=== PATIENT | female | born 1930 | race Caucasian/White ===

== ENCOUNTER 2018-01-08 14:24 | Inpatient (IN) | payer MEDICAID ==
--- NOTE | 2018-01-08 14:37 | ED Physician Chart ---
ED Chief Complaint/HPI - Patient Information Date Seen:: 01/08/18 Time Seen:: 14:30 Chief Complaint:: SWELLING IN ANTERIOR NECK FIRST NOTED 10 AM YESTERDAY. History of Present Illness:: THIS 87-YEAR-OLD FEMALE WAS NOTED TO HAVE SWELLING IN THE ANTERIOR NECK YESTERDAY AT 10 AM. AT THAT TIME THE PATIENT WAS STARTED ON CLINDAMYCIN 300 MG EVERY 6 HOURS. WHEN THE PATIENT SWELLING SEEMED TO BE PROGRESSING AUGMENTIN WAS ADDED TO THE ANTIBIOTIC REGIMEN. THE PATIENT WAS TRANSFERRED TO THE EMERGENCY DEPARTMENT FOR EVALUATION OF AIRWAY OBSTRUCTION AND INTERVENTION NEEDED. UPON ARRIVAL THE PATIENT HAD A TEMPERATURE OF 100.5. Allergies:: Allergies Allergy/AdvReac Type Severity Reaction Status Date / Time Penicillins [PCN] AdvReac Verified 06/03/16 19:15 ED Review of Systems - Review of Systems General/Constitutional: Fever, Other (DUE TO THE PATIENT'S DEMENTIA AND PRIOR CVA NO RELIABLE INFORMATION COULD BE OBTAINED FOR REVIEW OF SYSTEM.) Skin: Other ED Past Medical History - Past Medical History Past Medical History: Other (PAPERWORK WHICH ACCOMPANIED THE PATIENT SHOWED A PAST MEDICAL HISTORY OF HYPERTENSION, LIPIDEMIA, CEREBRAL VASCULAR ACCIDENT NOT OTHERWISE SPECIFIED, DVT, SOFTWARE QUALITY TESTER USE OF ANTICOAGULANTS, PEPTIC ULCER DISEASE , AND DEMENTIA.) Family History: HTN, DVT/PE, Other Social History: Non Smoker, No Alcohol, No Drug Use, Care Facility ([facility]) Family Medical History - Family Member Mother History Unknown: Yes ED Physical Exam - Physical Examination General/Constitutional: Awake, Well-developed, well-nourished, Non-toxic appearing Other Gen/Cons comments:: THE PATIENT IS AWAKE AND WITHIN NO RESPIRATORY DISTRESS AT THE TIME OF INITIAL EVALUATION. Head: Atraumatic Eyes: Lids, conjuctiva normal, PERRL, EOMI Skin: No ecchymosis, No lymphadenopathy Other Skin comments:: The patient has small hemorrhagic lesions in the subcutaneous area in both the upper and lower extremities. ENMT: External ears, nose nl, TM canals nl, Nasal exam nl, Oropharynx nl, Tonsils nl Other ENMT comments:: The patient is edentulous with dentures in both the upper and lower oral cavity. Neck: No stridor Other Neck comments:: SWOLLEN MASS TO THE RIGHT OF THE MIDLINE IN THE ANTERIOR NECK. THIS IS VERY TENDER TO PALPATION. THE VOICE IS NOT MUFFLED WHEN THE PATIENT VOCALIZES. MILD INCREASE IN MUSCLE TONE WITH BOTH LATERAL ROTATION AND A P FLEXION Respiratory: Nl effort/Exclusion, No Wheeze/Rhonchi/Rales Cardio Vascular: RRR, No murmur, gallop, rubs, NL S1 S2 Other Cardio Vascular comments:: Adequate distal pulses in all 4 extremities. GI: No tenderness/rebounding/guarding, No organomegaly, Normal BS's, Nondistended, No mass/bruits, No McBurney tenderness Other GI comments:: Rectal examination deferred at my discretion. : No CVA tenderness, No CMT Extremities: No tenderness or effusion, No edema Other Extremities comments:: Able to move in all 4 extremities to withdraw from noxious stimuli. ED Labs/Radiology/EKG Results - Lab Results Results: CT scan of the soft tissues in the neck: From Dr. Damir Cabral's report the patient has severe enlargement of the right parotid gland with obscuration of margins of the adjacent musculature and vascular structures. Questionable inflammatory versus neoplastic etiology. Severe atherosclerotic vascular disease. Haziness throughout subcutaneous tissues in the right side of the neck consistent with edema. Severe degenerative spinal changes in the neck. Mucosal thickening of the maxillary sinus. EKG INTERPRETATION: ATRIAL FIBRILLATION AT A RATE OF 71. NORMAL QRS DURATION AT 85 NORMAL QT INTERVAL AT 412 NORMAL AXIS WITH POSITIVE QRS COMPLEXES IN LEAD [address] SEGMENT DEPRESSION IN LEAD [address] SEGMENT ELEVATION. IMPRESSION: ABNORMAL EKG Laboratory Results - last 24 hr 01/08/18 15:00 WBC 35.0 H* RBC 4.21 Hgb 13.9 Hct 41.1 MCV 97.7 MCH 33.0 H MCHC Differential 33.8 RDW 15.5 Plt Count 217 MPV 7.7 Patient's CBC showed a white count of 35,000 the hemoglobin was 13.9 and platelet count was 217 and within normal parameters. Results of metabolic studies are still pending as of this time. ED Assessment - Assessment Excludes all billable procedures: No This condition life threatening/high prob of deterioration: No - Procedures Informed Consent: Procedure/risk/benefits explained by MD: No Laceration Type:: None ED Septic Shock - . Is Septic Shock (SBP<90, OR Lactate>4 mmol\L) present?: No ED Reassessment (Disposition) - Reassessment Reassessment Condition:: Improved - Diagnosis Diagnosis:: SARAY ANGINA - Aftercare/Follow up Instructions Notes:: Patient was not, consult regarding laboratory studies or radiographic studies. - Patient Disposition Discharge/Transfer:: Acute Care w/in this hosp Accepting Physician:: DR STONE PATIENT WILL BE ADMITTED TO AN ICU BED FOR MONITORING OF THE AI Discussion with Medical Provider:: The possible need for surgical airway was discussed with Dr. Vonnie morales.
[2018-01-08 15:38] LABS: HEMATOCRIT 41.1 % (41.0-60); HEMOGLOBIN 13.9 gm/dL (12-16); MANUAL DIFF REQUIRED? YES; MEAN CELL VOLUME 97.7 fl (81-100); MEAN CORPUSCULAR HGB CONC 33.8 pg (28.0-36.0); MEAN PLATELET VOLUME 7.7 fl; PLATELET COUNT 217 Th/cmm (150-400); RED BLOOD COUNT 4.21 Mil/cmm (3.80-5.20); RED CELL DISTRIBUTION WIDTH 15.5 % (11.5-20.0)
[2018-01-08 16:07] LABS: ALBUMIN 3.3 gm/dL (3.7-5.3); ALKALINE PHOSPHATASE 85 U/L (34-104); ANION GAP 13.3 (7.0-16.0); BILIRUBIN,TOTAL 2.1 mg/dL (0.3-1.0); BUN - UREA NITROGEN 15 mg/dL (7-25); CALCIUM SERUM 9.2 mg/dL (8.6-10.3); CARBON DIOXIDE 24.7 mEq/L (21.0-31.0); CHLORIDE 98 mEq/L (98-107); CREATININE - SERUM 0.8 mg/dL (0.6-1.2); GLUCOSE 141 mg/dL (70-105); SGOT 20 U/L (13-39); SGPT/ALT 11 U/L (7-52); SODIUM SERUM 132 mEq/L (136-145); TOTAL PROTEIN,SERUM 6.6 gm/dL (6.0-8.3)
[2018-01-08 16:11] LABS: BAND NEUTROPHILE 3 % (0-10); BASOPHIL 0 % (0-3); EOSINOPHIL 0 % (0-5); LYMPHOCYTE 4 % (20-50); MONOCYTE 5 % (2-10); NEUTROPHILS 88 % (40-80); TOTAL CELLS COUNTED 100
[2018-01-08 16:12] LABS: PLATELET ESTIMATE ADEQUATE (NORMAL)
[2018-01-08] MEDS ORDERED: Guaifenesin DM 10 ML UDC PO PRN (18:01)
[2018-01-08] MEDS ORDERED: Hydrocodone/APAP 5mg/325mg Tab PO PRN (18:04)
[2018-01-08] MEDS ORDERED: Maalox 30 mL Cup PO PRN (18:04)
[2018-01-08] MEDS ORDERED: Magnesium Hydroxide (MOM) 30 mL UDC PO PRN (18:04)
--- NOTE | 2018-01-08 19:11 | History & Physical ---
ADMIT DATE: 01/08/2018 CHIEF COMPLAINT: Right facial swelling. HISTORY OF PRESENT ILLNESS: The patient is an 87-year-old white female who has been transferred from a senior living facility. The patient was previously noted at the senior living facility to have swollen face and right side of the anterior neck. The patient was started on clindamycin at the senior living facility. The patient's swelling has worsened and she developed more fever and the patient was transferred over to the [facility] for further evaluation. Upon arrival in the ER, the patient had a temperature of 100.5. ALLERGIES: PENICILLIN. REVIEW OF SYSTEMS: See history of present illness. PAST MEDICAL HISTORY: Hypertension, hyperlipidemia, depression, CVA, DVT, peptic ulcer disease, dementia, and chronic anticoagulation therapy. SOCIAL HISTORY: No reports of smoking, drinking, or drug use. The patient lives in a senior living facility. MEDICATIONS: See medication reconciliation form. PHYSICAL EXAMINATION: GENERAL: The patient is awake, nontoxic in appearance. VITAL SIGNS: On admission, temperature 100.5, pulse of 75, blood pressure 128/70, respiratory rate 16, pulse oximetry 95% on room air. HEENT: Normocephalic, atraumatic. Extraocular muscles intact. Pupils are equal, round, and reactive to light and accommodation. Oropharynx clear. Tympanic membranes clear. Tonsils clear. NECK: The patient has a swollen mass on the right side of the anterior neck. It is tender to palpation. No thyromegaly. RESPIRATORY: Clear. No wheeze, rales, or rhonchi. CARDIOVASCULAR: S1, S2. No rubs, murmurs, or gallops. GASTROINTESTINAL: Soft, nontender, nondistended. Positive bowel sounds. GENITOURINARY: No CVA tenderness. No suprapubic tenderness. BACK: No midline tenderness. EXTREMITIES: Equal pulses bilaterally. No cyanosis, clubbing, or edema. SKIN: Negative. PSYCHIATRIC: Negative. NEUROLOGIC: Unable to assess due to the patient's dementia. LABORATORY DATA ON ADMISSION: Hematology: WBC of 35, hemoglobin is 13.9, hematocrit 41.1, platelet count of 217, 80% neutrophils, 4% lymphocytes. Chemistry: Sodium 134.0, chloride 80, bicarbonate 24, anion gap 13, BUN 15, creatinine 0.8, GFR unavailable, glucose 141, lactic acid 2.32, calcium 9.2, total bilirubin 2.1, AST 20, ALT 11, alkaline phosphatase 85, total protein 6.6, albumin 3.3, globulin 3.3. MICROBIOLOGY: No new microbiology results. RADIOLOGY: CT of the neck without contrast showed severe enlargement of the right parotid gland with obscuration of margins of the adjacent musculature and vascular structures, questionable inflammatory versus neoplastic etiology. Severe atherosclerotic disease. Haziness throughout the subcutaneous tissues of the right neck, consistent with edema. Severe degenerative changes of spine and mucosal thickening of the maxillary sinuses. IMPRESSION: 1. Abdi's angina. 2. Sepsis. 3. Atrial fibrillation. 4. Hypertension. 5. Hyperlipidemia. 6. History of CVA. 7. History of deep venous thrombosis. 8. Peptic ulcer disease. 9. Dementia. PLAN: The patient admitted to ICU, seen by Dr. Wilman Og. General Surgery consultation, Dr. Eduardo. Pulmonary Critical Care consultation, Dr. Villeda. Infectious Disease consultation, Dr. Coy Villeda. We will obtain Cardiology consultation from Dr. Lee Og. We will obtain further labs and consultations as needed. JOB# [id number]
[2018-01-08] MEDS: Morphine Sulfate 4 mg/mL 1mL Syr IVP PRN (20:14)
[2018-01-08] MEDS: D5-0.45NS 1,000 ML IV SCH (20:15)
[2018-01-08] MEDS: INSULIN ASPART SLIDING SCALE 100 UNITS/ML UNIT SUBQ SCH (21:02)
[2018-01-09 02:48] VITALS: BP 126/65
[2018-01-09 04:58] LABS: HEMATOCRIT 41.1 % (41.0-60); HEMOGLOBIN 13.8 gm/dL (12-16); LYMPHOCYTE ABSOLUTE 0.8 Th/cmm (1.5-3.0); MANUAL DIFF REQUIRED? YES; MEAN CELL VOLUME 98.3 fl (81-100); MEAN CORPUSCULAR HGB CONC 33.5 pg (28.0-36.0); MEAN PLATELET VOLUME 7.7 fl; MONOCYTE ABSOLUTE 1.2 Th/cmm (0.3-1.0); NEUTROPHILE ABSOLUTE 27.9 Th/cmm (1.8-8.0); PLATELET COUNT 205 Th/cmm (150-400); RED BLOOD COUNT 4.18 Mil/cmm (3.80-5.20); RED CELL DISTRIBUTION WIDTH 15.7 % (11.5-20.0)
[2018-01-09 05:22] LABS: BUN - UREA NITROGEN 16 mg/dL (7-25); CALCIUM SERUM 8.9 mg/dL (8.6-10.3); CARBON DIOXIDE 22.8 mEq/L (21.0-31.0); CHLORIDE 101 mEq/L (98-107); CREATININE - SERUM 0.7 mg/dL (0.6-1.2); GLUCOSE 159 mg/dL (70-105); POTASSIUM SERUM 3.8 mEq/L (3.5-5.1); SODIUM SERUM 130 mEq/L (136-145)
[2018-01-09 05:30] LABS: WHITE BLOOD COUNT 30.9 Th/cmm (4.8-10.8)
[2018-01-09 05:45] LABS: BAND NEUTROPHILE 13 % (0-10); LYMPHOCYTE 3 % (20-50); NEUTROPHILS 82 % (40-80); TOTAL CELLS COUNTED 100
[2018-01-09 05:46] LABS: MONOCYTE 2 % (2-10)
[2018-01-09 05:47] LABS: BASOPHIL 0 % (0-3); EOSINOPHIL 0 % (0-5); PLATELET ESTIMATE ADEQUATE (NORMAL); PLATELET MORPHOLOGY NORMAL (NORMAL)
[2018-01-09] MEDS: Morphine Sulfate 4 mg/mL 1mL Syr IVP PRN ×3 (06:10→22:25)
[2018-01-09] MEDS: D5-0.45NS 1,000 ML IV SCH ×2 (06:10→16:26)
[2018-01-09 06:27] LABS: ESR SEDIMENTATION SED RATE 23 mm/hr (0-30)
[2018-01-09] MEDS: INSULIN ASPART SLIDING SCALE 100 UNITS/ML UNIT SUBQ SCH ×4 (08:03→21:33)
--- NOTE | 2018-01-09 08:54 | Diagnostic Imaging Report ---
CT scan soft tissues of the neck without intravenous contrast HISTORY: Mass, swelling Total DLP equals 446 CTDI equals 20.0 Axial sections were obtained from the maxilla down to level below the thoracic inlet. The exam demonstrate marked enlargement of the right parotid gland. Changes result in obscuration of the margins of the adjacent musculature and adjacent vascular landmarks. Evaluation limited due to the absence of intravenous contrast. Findings may be associated with an inflammatory or neoplastic etiology. There is slight displacement of the oral pharyngeal and hypopharyngeal airway to the left. Obscuration of the right piriform sinus and right for loculated. Again, there is obscuration of fat planes adjacent to the right side of the airway at these levels. The cervical trachea appears normal. No abnormality seen through the region of the vocal cords. There is haziness throughout the subcutaneous tissues of the right neck consistent with probable edema. Severe degenerative changes seen to the cervical spine. Mucosal thickening seen within the maxillary sinuses. IMPRESSION: 1. Severe enlargement of the right parotid gland with obscuration of the margins of the adjacent musculature and vascular structures. Extension into the area along the right side of the oral and hypopharynx associated with slight displacement of the oral and hypopharynx to the left side. Findings may be associated with inflammatory or a neoplastic etiology. 2. Severe atherosclerotic vascular changes 3. Severe degenerative changes throughout the spine 4. Mucosal thickening within the maxillary sinuses
[2018-01-09] MEDS ORDERED: Non-Formulary Item 1 EA (Cranberry [Cranberry] 425 MG) PO SCH (09:00)
[2018-01-09] MEDS: Polyvinyl Alcohol Ophth Soln 15 mL Bottle EACH EYE SCH (09:07)
[2018-01-09] MEDS: Multivitamin Tab PO SCH (09:07)
[2018-01-09] MEDS: Potassium Chloride 20 mEq ER Tab PO SCH (09:07)
[2018-01-09] MEDS: Aspirin 81mg Chewable Tab PO SCH (09:07)
[2018-01-09] MEDS: Calcium Carb/Vit D 500 mg/200 U Tab PO SCH (09:10)
--- NOTE | 2018-01-09 12:58 | General Progress Note ---
Subjective - Review of Systems Service Date: 01/09/18 Events since last encounter: consult dictated CT scan parotitis hot compress added to antibiotics Objective - Results Result Diagrams: 01/09/18 04:45 01/09/18 04:45 Recent Labs: Laboratory Last Values WBC 30.9 Th/cmm (4.8-10.8) H* 01/09/18 04:45 RBC 4.18 Mil/cmm (3.80-5.20) 01/09/18 04:45 Hgb 13.8 gm/dL (12-16) 01/09/18 04:45 Hct 41.1 % (41.0-60) 01/09/18 04:45 MCV 98.3 fl (81-100) 01/09/18 04:45 MCH 33.0 pg (27.0-31.0) H 01/09/18 04:45 MCHC Differential 33.5 pg (28.0-36.0) 01/09/18 04:45 RDW 15.7 % (11.5-20.0) 01/09/18 04:45 Plt Count 205 Th/cmm (150-400) 01/09/18 04:45 MPV 7.7 fl 01/09/18 04:45 Band Neutrophils % 13 % (0-10) H 01/09/18 04:45 Neutrophils (Manual) 82 % (40-80) H 01/09/18 04:45 Lymphocytes 3 % (20-50) L 01/09/18 04:45 Monocytes 2 % (2-10) 01/09/18 04:45 Eosinophils 0 % (0-5) 01/09/18 04:45 Basophils 0 % (0-3) 01/09/18 04:45 Platelet Estimate ADEQUATE (NORMAL) 01/09/18 04:45 Platelet Morphology NORMAL (NORMAL) 01/09/18 04:45 RBC Morph Micro Appear NORMAL (NORMAL) 01/09/18 04:45 ESR 23 mm/hr (0-30) 01/09/18 04:45 Sodium 130 mEq/L (136-145) L 01/09/18 04:45 Potassium 3.8 mEq/L (3.5-5.1) 01/09/18 04:45 Chloride 101 mEq/L (98-107) 01/09/18 04:45 Carbon Dioxide 22.8 mEq/L (21.0-31.0) 01/09/18 04:45 Anion Gap 10.0 (7.0-16.0) 01/09/18 04:45 BUN 16 mg/dL (7-25) 01/09/18 04:45 Creatinine 0.7 mg/dL (0.6-1.2) 01/09/18 04:45 Est GFR ( Amer) TNP 01/09/18 04:45 Est GFR (Non-Af Amer) TNP 01/09/18 04:45 BUN/Creatinine Ratio 22.9 01/09/18 04:45 Glucose 159 mg/dL (70-105) H 01/09/18 04:45 POC Glucose 140 MG/DL (70 - 105) H 01/09/18 11:57 Whole Bld Lactic Acid 2.32 mmol/L (0.60-1.99) H* 01/08/18 22:40 Calcium 8.9 mg/dL (8.6-10.3) 01/09/18 04:45 Total Bilirubin 2.1 mg/dL (0.3-1.0) H 01/08/18 15:00 AST 20 U/L (13-39) 01/08/18 15:00 ALT 11 U/L (7-52) 01/08/18 15:00 Alkaline Phosphatase 85 U/L (34-104) 01/08/18 15:00 C-Reactive Protein 24.6 mg/dL (0.0-0.9) H 01/09/18 04:45 Total Protein 6.6 gm/dL (6.0-8.3) 01/08/18 15:00 Albumin 3.3 gm/dL (3.7-5.3) L 01/08/18 15:00 Globulin 3.3 gm/dL 01/08/18 15:00 Albumin/Globulin Ratio 1.0 (1.0-1.8) 01/08/18 15:00 - Physical Exam Vitals and I&O: Vital Signs Temp 97.2 F 01/09/18 08:00 Pulse 74 01/09/18 11:00 Resp 16 01/09/18 11:00 BP 116/86 01/09/18 11:00 Pulse Ox 99 01/09/18 11:00 Intake & Output 01/08/18 01/09/18 01/09/18 18:59 06:59 18:59 Intake Total 1016.667 Output Total 250 Balance 766.667 Weight (lbs) 68.765 kg Intake: Intake, IV Amount 991.667 D5-0.45NS 1,000 ml @ 100 991.667 mls/hr IV .Q10H WINTER Rx#: [id number] Oral 25 Output: Urine 250 Other: # Voids 1 Weight Source Bedscale Active Medications: Current Medications Acetaminophen (Tylenol) 650 mg PO Q6HR PRN PRN Reason: TEMP >101 OR MILD PAIN Stop: 03/09/18 18:00 Acetaminophen/Hydrocodone Bitart (Oil Trough 5mg/325mg) 1 tab PO Q6H PRN PRN Reason: Moderate Pain Stop: 03/09/18 18:03 Last Admin: 01/09/18 01:28 Dose: 1 tab Al Hydrox/Mg Hydrox/Simethicone (Maalox) 30 ml PO Q6H PRN PRN Reason: Dyspepsia Stop: 03/09/18 18:03 Amlodipine Besylate (Norvasc) 10 mg PO DAILY WINTER Stop: 03/10/18 08:59 Last Admin: 01/09/18 09:10 Dose: 10 mg Artificial Tears (Artificial Tears Ophth Soln) 1 drop EACH EYE DAILY WINTER Stop: 03/10/18 08:59 Last Admin: 01/09/18 09:07 Dose: 1 drop Aspirin (Aspirin Chewable) 81 mg PO DAILY WINTER Stop: 03/10/18 08:59 Last Admin: 01/09/18 09:07 Dose: 81 mg Calcium/Vitamin D (Oscal W/Vitamin D) 1 tab PO DAILY WINTER Stop: 03/10/18 08:59 Last Admin: 01/09/18 09:10 Dose: 1 tab Cyanocobalamin (Vitamin B12) 1,000 mcg PO DAILY WINTER Stop: 03/10/18 08:59 Last Admin: 01/09/18 09:07 Dose: 1,000 mcg Docusate Sodium (Colace) 100 mg PO DAILY WINTER Stop: 03/10/18 08:59 Last Admin: 01/09/18 09:07 Dose: 100 mg Donepezil HCl (Aricept) 5 mg PO HS [facility] Stop: 03/09/18 20:59 Last Admin: 01/08/18 21:41 Dose: 5 mg Escitalopram Oxalate (Lexapro) 10 mg PO DAILY WINTER PRN Reason: Protocol Stop: 03/10/18 08:59 Last Admin: 01/09/18 09:07 Dose: 10 mg Folic Acid (Folate) 1 mg PO DAILY WINTER Stop: 03/10/18 08:59 Last Admin: 01/09/18 09:09 Dose: 1 mg Furosemide (Lasix) 40 mg PO DAILY WINTER Stop: 03/10/18 08:59 Last Admin: 01/09/18 09:07 Dose: 40 mg Guaifenesin/Dextromethorphan (Robitussin Dm) 10 ml PO Q6HR PRN PRN Reason: Cough Stop: 03/09/18 18:00 Dextrose/Sodium Chloride (D5-0.45ns) 1,000 mls @ 100 mls/hr IV .Q10H [facility] Stop: 03/09/18 20:10 Last Admin: 01/09/18 06:10 Dose: 100 mls/hr Vancomycin HCl 1 gm/ Sodium (Chloride) 250 mls @ 165 mls/hr IV Q24H [facility] Stop: 03/10/18 15:59 Insulin Aspart (Novolog Insulin Sliding Scale) 0 units SUBQ ACHS WINTER PRN Reason: Protocol Stop: 03/09/18 20:59 Last Admin: 01/09/18 12:00 Dose: Not Given Lorazepam (Ativan) 1 mg PO BID PRN; Protocol PRN Reason: Anxiety Stop: 03/09/18 18:00 Losartan Potassium (Cozaar) 50 mg PO BID [facility] Stop: 03/10/18 08:59 Last Admin: 01/09/18 09:11 Dose: 50 mg Magnesium Hydroxide (Milk Of Magnesia) 30 ml PO HS PRN PRN Reason: Constipation Stop: 03/09/18 18:03 Metoprolol Tartrate (Lopressor) 50 mg PO BID [facility] Stop: 03/10/18 08:59 Last Admin: 01/09/18 09:11 Dose: 50 mg Miscellaneous (Vancomycin Iv Per Pharmacy) 1 ea MC PRN PRN PRN Reason: PROTOCOL Stop: 03/09/18 20:10 Morphine Sulfate (Morphine) 2 mg IVP Q4H PRN PRN Reason: Severe Pain Stop: 03/09/18 18:03 Last Admin: 01/09/18 06:10 Dose: 2 mg Multivitamins/Vitamin C (Theragran) 1 tab PO DAILY WINTER Stop: 03/10/18 08:59 Last Admin: 01/09/18 09:07 Dose: 1 tab Ondansetron HCl (Zofran) 4 mg IVP Q6H PRN PRN Reason: Nausea / Vomiting Stop: 03/09/18 18:03 Potassium Chloride (Klor-Con) 20 meq PO DAILY WINTER Stop: 03/10/18 08:59 Last Admin: 01/09/18 09:07 Dose: 20 meq Simvastatin (Zocor) 40 mg PO HS WINTER PRN Reason: Protocol Stop: 03/09/18 20:59 Last Admin: 01/08/18 21:41 Dose: 40 mg Terazosin HCl (Hytrin) 2 mg PO HS WINTER Stop: 03/10/18 20:59 Assessment/Plan - Problem List Patient Problems: All Active Problems RIGHT SIDED NECK/FACIAL SWELLING (Acute)
--- NOTE | 2018-01-09 13:13 | Progress Notes ---
DATE: 01/09/2018 SUBJECTIVE: The patient is in ICU. The patient is on oxygen nasal cannula. The patient is on IV antibiotics. The patient is on IV fluids. OBJECTIVE: VITAL SIGNS: Temperature 37.2, pulse 94, blood pressure 133/66, respiratory rate 17, oxygen by nasal cannula. CARDIAC: S1 and S2. RESPIRATORY: Few rales. GASTROINTESTINAL: Soft. Positive bowel sounds. LABORATORY DATA: Hematology: WBC per labs hemoglobin 13.8, hematocrit 41.1, and platelet count of 205, 13% bands, 82% lymphocytes, 3% lymphocytes. Chemistry: Sodium 130, potassium 3.8, chloride 101, bicarbonate 22, anion gap 10, BUN 16, and creatinine 0.7. GFR unavailable. Glucose is 159 and calcium 8.9. CRP 24.6. MICROBIOLOGY: Pending. RADIOLOGY: No results. ASSESSMENT: 1. Sepsis. 2. Abdi's angina. 3. Atrial fibrillation. 4. Hypertension. 5. Hyperlipidemia. 6. Cerebrovascular accident. 7. Deep vein thrombosis. 8. Peptic ulcer disease. 9. Dementia. PLAN: Continue current medication and treatment. Obtain labs in a.m. Awaiting culture results. Awaiting consultation from General Surgery, Critical Care, Infectious Disease and Cardiology. Further consults. JOB# [id number] CHRISTIN
--- NOTE | 2018-01-09 16:18 | Consultation ---
DATE OF CONSULTATION: 01/09/2018 REFERRING PHYSICIAN: Dr. Eduin Og. REASON FOR CONSULTATION: Right neck swelling. Thank you for referring this patient to me. HISTORY OF PRESENT ILLNESS: An 87-year-old patient comes in [facility] following 2-3 days of increasing swelling and pain involving the right neck region. The patient also had a low grade fever. This is the first episode of this nature. PAST MEDICAL HISTORY: Hypertension, hyperlipidemia, depression, CVA, DVT, peptic ulcer disease and chronic anticoagulant therapy for atrial fibrillation. LABORATORY STUDIES: At admission showed WBC to be markedly elevated to 35,000 with neutrophils of 88%. Chemistry: Lactic acid elevated to 2.32, total bilirubin was high at 2.1, although the rest of the liver function tests are normal. She underwent CT scan of the neck, which showed a severe enlargement of the right carotid gland with the obscuration of the margins of the adjacent musculature and vascular structures as well. The swelling extends into the oral and hypopharynx associated with slight displacing the oral and hypopharynx to the left side. Question of inflammatory or neoplastic process. PHYSICAL EXAMINATION: Slight swelling in the right neck, which is onto the mandible, which is very tender. There is some redness present as well. The patient is able to swallow and has been taking liquids. IMPRESSION: Parotitis and to rule out salivary duct obstruction with stone? RECOMMENDATIONS: In the meantime, continue antibiotics and will do hot compress. Unfortunately, no ENT surgeons available at this facility. JOB# [id number]
[2018-01-09] MEDS: metroNIDAZOLE 500mg/NS 100mL 500 MG/100 ML BAG IV SCH (21:30)
--- NOTE | 2018-01-09 22:28 | Consultation ---
DATE OF CONSULTATION: 01/09/2018 PULMONARY CONSULTATION NOTE REASON FOR CONSULTATION: Short of breath as well as some swelling of the right side of the neck. CONSULT NOTE: This is an 87-year-old female, very limited history except for reviewing the chart. The patient has had noted history of some swelling of the right side of the neck for the last couple of days and subsequently was started on clindamycin. Subsequently, the patient's symptoms got worse, swelling got worse, was admitted for further evaluation and necessary treatment. The patient is awake, is able to eat, but had some disorientation and meaningful detailed history from the patient is not available. PAST MEDICAL HISTORY: History of hypertension, dyslipoproteinemia, history of CVA, DVT, peptic ulcer disease, and also on a chronic anticoagulation therapy. SMOKING HISTORY: Nil. Currently lives in a current local alf facility. PHYSICAL EXAMINATION: GENERAL: This is an elderly looking female, awake. There is quite obvious swelling on the right side of the face and no respiratory distress. VITAL SIGNS: The patient's recorded vitals, afebrile, blood pressure 116/86 and saturation is 99 on 2 liters per minute. HEENT: Examination of the head is essentially unremarkable. There is significant right-sided swelling, which is pulling of the right lip and significant tenderness to touch. Oral cavity, limited exam as the patient could not open too much mouth. Left side appears to be okay. No palpable node in lower end of the neck could be appreciated. CHEST: Shows clear with diminished air entry. HEART: Regular. ABDOMEN: Soft and nontender. EXTREMITIES: Shows some chronic edematous changes. The patient's soft tissue of the neck shows severe enlargement of the right parotid gland with obscuration of the margins of adjacent musculature as well a vascular structure extension area, right side of the hypopharynx associated with slight displacing the oral and hypopharynx to the left side and could not tell this is inflammatory or carcinoma. LABORATORY DATA: The patient's other studies: White count is 35,000. The patient's electrolytes are okay. Neutrophils 88. Sodium is 132. White count is slightly come down since yesterday. IMPRESSION: 1. The patient's basic problem appears to be right side parotid abscess or somewhere around that region, which is affecting upper airway to a certain degree. 2. Underlying hypertension. 3. Dementia. 4. History of previous cerebrovascular accident. PLANS AND SUGGESTIONS: Consider ID input. I agree with antibiotic as well as local compression with warm compressions. We will get a baseline chest x-ray and blood gases. Also, if the symptoms does not get better, may be consideration to get the facility where ENT is easily available and go from there. JOB# [id number]
[2018-01-10] MEDS: D5-0.45NS 1,000 ML IV SCH ×2 (01:52→13:08)
[2018-01-10] MEDS: metroNIDAZOLE 500mg/NS 100mL 500 MG/100 ML BAG IV SCH ×3 (03:59→20:55)
[2018-01-10] MEDS: Morphine Sulfate 4 mg/mL 1mL Syr IVP PRN ×3 (05:35→23:08)
[2018-01-10 05:44] LABS: HEMOGLOBIN 13.2 gm/dL (12-16); MANUAL DIFF REQUIRED? YES
[2018-01-10 05:51] LABS: HEMATOCRIT 39.7 % (41.0-60); MEAN CELL VOLUME 98.8 fl (81-100); MEAN CORPUSCULAR HEMOGLOBIN 32.9 pg (27.0-31.0); MEAN CORPUSCULAR HGB CONC 33.3 pg (28.0-36.0); MEAN PLATELET VOLUME 7.8 fl; PLATELET COUNT 247 Th/cmm (150-400); RED BLOOD COUNT 4.02 Mil/cmm (3.80-5.20); RED CELL DISTRIBUTION WIDTH 15.9 % (11.5-20.0)
[2018-01-10 05:56] LABS: WHITE BLOOD COUNT 27.1 Th/cmm (4.8-10.8)
[2018-01-10 06:00] LABS: ALB/GLOB RATIO 0.9 (1.0-1.8); ALBUMIN 2.7 gm/dL (3.7-5.3); ALKALINE PHOSPHATASE 96 U/L (34-104); BILIRUBIN,TOTAL 1.2 mg/dL (0.3-1.0); BUN - UREA NITROGEN 15 mg/dL (7-25); CALCIUM SERUM 8.4 mg/dL (8.6-10.3); CARBON DIOXIDE 20.3 mEq/L (21.0-31.0); CHLORIDE 101 mEq/L (98-107); CREATININE - SERUM 0.6 mg/dL (0.6-1.2); GLUCOSE 110 mg/dL (70-105); POTASSIUM SERUM 4.3 mEq/L (3.5-5.1); SGOT 32 U/L (13-39); SGPT/ALT 16 U/L (7-52); SODIUM SERUM 129 mEq/L (136-145); TOTAL PROTEIN,SERUM 5.7 gm/dL (6.0-8.3)
[2018-01-10 06:44] LABS: BAND NEUTROPHILE 6 % (0-10); LYMPHOCYTE 5 % (20-50); MONOCYTE 2 % (2-10); NEUTROPHILS 87 % (40-80); PLATELET ESTIMATE ADEQUATE (NORMAL); TOTAL CELLS COUNTED 100
[2018-01-10 07:16] LABS: ESR SEDIMENTATION SED RATE 36 mm/hr (0-30)
[2018-01-10] MEDS ORDERED: Probiotic Screen MC PRN (08:30)
[2018-01-10] MEDS: INSULIN ASPART SLIDING SCALE 100 UNITS/ML UNIT SUBQ SCH (08:30)
--- NOTE | 2018-01-10 08:42 | Diagnostic Imaging Report ---
Portable chest x-ray HISTORY: Shortness of breath The heart is enlarged. There is extensive severe atherosclerotic calcification throughout a tortuous aorta. There is evidence of small bilateral pleural effusions. Pulmonary vascular redistribution is seen consistent with changes of congestive heart failure. IMPRESSION: 1. Cardiomegaly with findings suggesting congestive heart failure 2. Severe extensive atherosclerotic calcification throughout a tortuous thoracic aorta.
[2018-01-10] MEDS: Multivitamin Tab PO SCH (08:44)
[2018-01-10] MEDS: Potassium Chloride 20 mEq ER Tab PO SCH (08:44)
[2018-01-10] MEDS: Polyvinyl Alcohol Ophth Soln 15 mL Bottle EACH EYE SCH (08:44)
[2018-01-10] MEDS: Lactobacillus Rhamnosus GG 15 Billion CFU CAP.SPRINK PO SCH (08:44)
[2018-01-10] MEDS: Aspirin 81mg Chewable Tab PO SCH (08:45)
[2018-01-10] MEDS: Calcium Carb/Vit D 500 mg/200 U Tab PO SCH (08:48)
[2018-01-10 09:23] LABS: ALLEN TEST Positive; pH 7.46 (7.35-7.45)
--- NOTE | 2018-01-10 18:11 | Infectious Disease Prog Note ---
Infectious Disease Subjective - Review of Systems Service Date: 01/10/18 Subjective: cc parotitis hpi- wbc decraesed ros no fevr o/e confused vss chest claer abd soft ext pulse rt faxial swelling decrased Infectious Disease Objective - Results Result Diagrams: 01/10/18 05:15 01/10/18 05:15 Recent Labs: Laboratory Last Values WBC 27.1 Th/cmm (4.8-10.8) H* 01/10/18 05:15 RBC 4.02 Mil/cmm (3.80-5.20) 01/10/18 05:15 Hgb 13.2 gm/dL (12-16) 01/10/18 05:15 Hct 39.7 % (41.0-60) L 01/10/18 05:15 MCV 98.8 fl (81-100) 01/10/18 05:15 MCH 32.9 pg (27.0-31.0) H 01/10/18 05:15 MCHC Differential 33.3 pg (28.0-36.0) 01/10/18 05:15 RDW 15.9 % (11.5-20.0) 01/10/18 05:15 Plt Count 247 Th/cmm (150-400) 01/10/18 05:15 MPV 7.8 fl 01/10/18 05:15 Band Neutrophils % 6 % (0-10) 01/10/18 05:15 Neutrophils (Manual) 87 % (40-80) H 01/10/18 05:15 Lymphocytes 5 % (20-50) L 01/10/18 05:15 Monocytes 2 % (2-10) 01/10/18 05:15 Eosinophils 0 % (0-5) 01/09/18 04:45 Basophils 0 % (0-3) 01/09/18 04:45 Platelet Estimate ADEQUATE (NORMAL) 01/10/18 05:15 Platelet Morphology NORMAL (NORMAL) 01/09/18 04:45 RBC Morph Micro Appear NORMAL (NORMAL) 01/09/18 04:45 ESR 36 mm/hr (0-30) H 01/10/18 05:15 Specimen Source Arterial 01/10/18 09:00 Sample Site Right Radial 01/10/18 09:00 pH 7.46 (7.35-7.45) H 01/10/18 09:00 pCO2 37.0 mmHg (35.0-45.0) 01/10/18 09:00 pO2 84.0 mmHg (80.0-100.0) 01/10/18 09:00 HCO3 26.9 mEq/L (20.0-26.0) H 01/10/18 09:00 Base Excess 2.5 mEq/L (-3.0-3.0) 01/10/18 09:00 O2 Saturation 97.0 % (92.0-100.0) 01/10/18 09:00 Fortunato Test Positive 01/10/18 09:00 Vent Rate NA 01/10/18 09:00 Inspired O2 28 01/10/18 09:00 Tidal Volume NA 01/10/18 09:00 PEEP NA 01/10/18 09:00 Pressure (ins/psv/peep) NA 01/10/18 09:00 Critical Value SH 01/10/18 09:00 Sodium 129 mEq/L (136-145) L 01/10/18 05:15 Potassium 4.3 mEq/L (3.5-5.1) 01/10/18 05:15 Chloride 101 mEq/L (98-107) 01/10/18 05:15 Carbon Dioxide 20.3 mEq/L (21.0-31.0) L 01/10/18 05:15 Anion Gap 12.0 (7.0-16.0) 01/10/18 05:15 BUN 15 mg/dL (7-25) 01/10/18 05:15 Creatinine 0.6 mg/dL (0.6-1.2) 01/10/18 05:15 Est GFR ( Amer) TNP 01/10/18 05:15 Est GFR (Non-Af Amer) TNP 01/10/18 05:15 BUN/Creatinine Ratio 25.0 01/10/18 05:15 Glucose 110 mg/dL (70-105) H 01/10/18 05:15 POC Glucose 115 MG/DL (70 - 105) H 01/09/18 21:32 Whole Bld Lactic Acid 2.32 mmol/L (0.60-1.99) H* 01/08/18 22:40 Calcium 8.4 mg/dL (8.6-10.3) L 01/10/18 05:15 Total Bilirubin 1.2 mg/dL (0.3-1.0) H 01/10/18 05:15 AST 32 U/L (13-39) 01/10/18 05:15 ALT 16 U/L (7-52) 01/10/18 05:15 Alkaline Phosphatase 96 U/L (34-104) 01/10/18 05:15 C-Reactive Protein 26.5 mg/dL (0.0-0.9) H 01/10/18 05:15 Total Protein 5.7 gm/dL (6.0-8.3) L 01/10/18 05:15 Albumin 2.7 gm/dL (3.7-5.3) L 01/10/18 05:15 Globulin 3.0 gm/dL 01/10/18 05:15 Albumin/Globulin Ratio 0.9 (1.0-1.8) L 01/10/18 05:15 TSH 31.50 uIU/ml (0.34-5.60) H 01/10/18 05:15 - Physical Exam Vitals and I&O: Vital Signs Temp 97.5 F 01/10/18 12:00 Pulse 92 01/10/18 16:15 Resp 20 01/10/18 16:00 BP 126/48 01/10/18 16:15 Pulse Ox 95 01/10/18 16:00 Intake & Output 01/09/18 01/10/18 01/10/18 18:59 06:59 18:59 Intake Total 1250 1016.672 7808 Output Total 600 Balance 1250 4337.384 8880 Weight (lbs) 69.082 kg Intake: Intake, IV Amount 1250 0097.749 4687 Aztreonam 1 gm In 100 50 Dextrose 5% 50 ml @ 100 mls/hr IV Q8HR [facility] Rx#: [id number] D5-0.45NS 1,000 ml @ 100 1000 864.630 7508 mls/hr IV .Q10H [facility] Rx#: [id number] Vancomycin HCl 1 gm In 250 250 Sodium Chloride 0.9% 250 ml @ 165 mls/hr IV Q24H [facility] Rx#:[id number] metroNIDAZOLE 500mg/NS 200 100 100mL 500 mg In 100 ml @ 100 mls/hr IV Q8HR [facility] Rx #:[id number] Oral 200 Other 300 Output: Urine 600 Other: # Voids 1 # Bowel Movements 0 Weight Source Bedscale Active Medications: Current Medications Acetaminophen (Tylenol) 650 mg PO Q6HR PRN PRN Reason: TEMP >101 OR MILD PAIN Stop: 03/09/18 18:00 Acetaminophen/Hydrocodone Bitart (Tyler 5mg/325mg) 1 tab PO Q6H PRN PRN Reason: Moderate Pain Stop: 03/09/18 18:03 Last Admin: 01/09/18 01:28 Dose: 1 tab Al Hydrox/Mg Hydrox/Simethicone (Maalox) 30 ml PO Q6H PRN PRN Reason: Dyspepsia Stop: 03/09/18 18:03 Amlodipine Besylate (Norvasc) 10 mg PO DAILY [facility] Stop: 03/10/18 08:59 Last Admin: 01/10/18 08:45 Dose: 10 mg Artificial Tears (Artificial Tears Ophth Soln) 1 drop EACH EYE DAILY [facility] Stop: 03/10/18 08:59 Last Admin: 01/10/18 08:44 Dose: 1 drop Aspirin (Aspirin Chewable) 81 mg PO DAILY [facility] Stop: 03/10/18 08:59 Last Admin: 01/10/18 08:45 Dose: 81 mg Calcium/Vitamin D (Oscal W/Vitamin D) 1 tab PO DAILY [facility] Stop: 03/10/18 08:59 Last Admin: 01/10/18 08:48 Dose: 1 tab Cyanocobalamin (Vitamin B12) 1,000 mcg PO DAILY [facility] Stop: 03/10/18 08:59 Last Admin: 01/10/18 08:44 Dose: 1,000 mcg Docusate Sodium (Colace) 100 mg PO DAILY [facility] Stop: 03/10/18 08:59 Last Admin: 01/10/18 08:44 Dose: 100 mg Donepezil HCl (Aricept) 5 mg PO HS [facility] Stop: 03/09/18 20:59 Last Admin: 01/09/18 21:05 Dose: 5 mg Escitalopram Oxalate (Lexapro) 10 mg PO DAILY [facility] PRN Reason: Protocol Stop: 03/10/18 08:59 Last Admin: 01/10/18 08:44 Dose: 10 mg Folic Acid (Folate) 1 mg PO DAILY [facility] Stop: 03/10/18 08:59 Last Admin: 01/10/18 08:44 Dose: 1 mg Furosemide (Lasix) 40 mg PO DAILY [facility] Stop: 03/10/18 08:59 Last Admin: 01/10/18 08:44 Dose: 40 mg Guaifenesin/Dextromethorphan (Robitussin Dm) 10 ml PO Q6HR PRN PRN Reason: Cough Stop: 03/09/18 18:00 Heparin Sodium (Porcine) (Heparin) 5,000 units SUBQ Q12HR [facility] Stop: 03/10/18 22:44 Last Admin: 01/10/18 08:45 Dose: 5,000 units Dextrose/Sodium Chloride (D5-0.45ns) 1,000 mls @ 100 mls/hr IV .Q10H [facility] Stop: 03/09/18 20:10 Last Admin: 01/10/18 13:08 Dose: 100 mls/hr Vancomycin HCl 1 gm/ Sodium (Chloride) 250 mls @ 165 mls/hr IV Q24H [facility] Stop: 03/10/18 15:59 Last Infusion: 01/10/18 17:40 Dose: Infused Aztreonam 1 gm/ Dextrose 50 mls @ 100 mls/hr IV Q8HR [facility] Stop: 03/10/18 20:59 Last Infusion: 01/10/18 13:35 Dose: Infused Metronidazole (Flagyl) 500 mg in 100 mls @ 100 mls/hr IV Q8HR [facility] Stop: 03/10/18 20:59 Last Infusion: 01/10/18 14:40 Dose: Infused Lactobacillus Rhamnosus (Culturelle 15b) 1 each PO DAILY [facility] Stop: 03/11/18 08:59 Last Admin: 01/10/18 08:44 Dose: 1 each Levothyroxine Sodium (Synthroid) 0.[address] [facility] Stop: 03/12/18 07:29 Lorazepam (Ativan) 1 mg PO BID PRN; Protocol PRN Reason: Anxiety Stop: 03/09/18 18:00 Losartan Potassium (Cozaar) [address] [facility] Stop: 03/10/18 08:59 Last Admin: 01/10/18 16:15 Dose: 50 mg Magnesium Hydroxide (Milk Of Magnesia) 30 ml PO HS PRN PRN Reason: Constipation Stop: 03/09/18 18:03 Metoprolol Tartrate (Lopressor) 50 mg PO BID [facility] Stop: 03/10/18 08:59 Last Admin: 01/10/18 16:14 Dose: 50 mg Miscellaneous (Vancomycin Iv Per Pharmacy) 1 ea [facility] PRN PRN PRN Reason: PROTOCOL Stop: 03/09/18 20:10 Miscellaneous (Probiotic Screen) 1 ea [facility] PRN PRN PRN Reason: PROTOCOL Stop: 03/11/18 08:29 Morphine Sulfate (Morphine) 2 mg IVP Q4H PRN PRN Reason: Severe Pain Stop: 03/09/18 18:03 Last Admin: 01/10/18 17:40 Dose: 2 mg Multivitamins/Vitamin C (Theragran) 1 tab PO DAILY [facility] Stop: 03/10/18 08:59 Last Admin: 01/10/18 08:44 Dose: 1 tab Ondansetron HCl (Zofran) 4 mg IVP Q6H PRN PRN Reason: Nausea / Vomiting Stop: 03/09/18 18:03 Potassium Chloride (Klor-Con) 20 meq PO DAILY [facility] Stop: 03/10/18 08:59 Last Admin: 01/10/18 08:44 Dose: 20 meq Simvastatin (Zocor) 40 mg PO HS [facility] PRN Reason: Protocol Stop: 03/09/18 20:59 Last Admin: 01/09/18 21:05 Dose: 40 mg Terazosin HCl (Hytrin) 2 mg PO HS [facility]INTER Stop: 03/10/18 20:59 Last Admin: 01/09/18 21:05 Dose: 2 mg Infectious Disease Assmt/Plan - Problem List Patient Problems: All Active Problems RIGHT SIDED NECK/FACIAL SWELLING (Acute)
--- NOTE | 2018-01-10 23:35 | Progress Notes ---
DATE: 01/10/2018 SUBJECTIVE: The patient is awake. The patient is on oxygen nasal cannula. The patient is on IV antibiotics. The patient is in the ICU. OBJECTIVE: VITAL SIGNS: Temperature is 98.6, pulse 73, blood pressure 113/50, respiratory rate 15, saturation of oxygen 94% on oxygen nasal cannula. CARDIOVASCULAR: S1 and S2. RESPIRATORY: Few rales. ABDOMEN: Soft. Positive bowel sounds. LABORATORY DATA: Hematology: WBC 27.1, hemoglobin 13.2, hematocrit 39.7, platelet count of 247, 87 neutrophils, 5% lymphocytes. ESR is 36. ABG: pH 7.4, pCO2 of 37, pO2 84, bicarb 22, saturation of oxygen 97% on oxygen nasal cannula. Chemistry: Sodium 129, potassium 4.3, chloride 105, bicarbonate 20, anion gap 12, BUN 15, creatinine 0.6, GFR is unavailable, glucose 110, calcium 8.4, total bilirubin 0.2, AST 32, ALT 16, alkaline phosphatase 96. C-reactive 26.5, total protein 5.7, albumin 2.7, globulin 3.0. TSH is 2.5. MICROBIOLOGY: Blood culture from 01/08/2018 shows no growth. Chest x-ray from 01/10/2018 shows cardiomegaly with findings consistent with congestive heart failure, severe distinct atherosclerotic tortuous thoracic aorta. ASSESSMENT: 1. Sepsis. 2. Abdi's angina. 3. Atrial fibrillation. 4. Hypertension. 5. Hyperlipidemia. 6. Cerebrovascular accident. 7. History of deep venous thrombosis. 8. Peptic ulcer disease. 9. Dementia. 10. Hypothyroidism. 11. Respiratory rate (acute). PLAN: Continue current medication. Awaiting culture results. We will transfer the patient to Telemetry Unit from ICU. JOB# [id number] CHRISTIN
--- NOTE | 2018-01-11 00:07 | Consultation ---
DATE OF CONSULTATION: 01/09/2018 REFERRING PHYSICIAN: Dr. Eduin Og. INDICATIONS: The patient is an atrial fib and has history of CVA, hypertension, hypertensive heart disease, dyslipidemia and coming with shortness of breath and swelling over the right side of the neck. HISTORY: This is an 87-year-old female who cannot give any history because of her mental status, so history is obtained from the chart. She has a history of swelling over the right side of the neck for the last couple of days. The patient was started on clindamycin, but got worse. She also had increasing disorientation and the patient was showing some signs of some more infection and increasing short of breath, so was transferred here for further management. Other workup is also found that she has had atrial fibrillation with variable heart rate, occasionally going into rapid ventricular rate. Could not obtain any further cardiac symptoms on her as she is demented and noncommunicable, we cannot get any good history out of her. PAST MEDICAL HISTORY: As mentioned above, history of hypertension, hypertensive heart disease, atrial fib which is chronic with a variable ventricular rate, dyslipidemia, history of CVA, DVT, peptic ulcer disease and is on chronic anticoagulant therapy. PERSONAL HISTORY: Non-smoker, nonalcoholic, no drug abuse, is a [facility] in a local [facility]. ALLERGIES: None known drug allergies. REVIEW OF SYSTEMS, FAMILY HISTORY OR PERSONAL HISTORY: Could not be obtained. Home meds, cardiac evaluation is being done. PHYSICAL EXAMINATION: GENERAL: The patient is not in any acute distress. On present therapy, the respiratory therapy and O2. VITAL SIGNS: Evaluated per nursing reporting: The temperature is normal, heart rate is ranging between 70 and 80s range, blood pressure within normal range. Respiratory rate 14-18 range. O2 sat is 94-99%. HEENT: Normocephalic, nontraumatic. NECK: There is some swelling there. Difficult to evaluate carotid bruit or so because the patient is not cooperative, gets restless on touching. LUNGS: Clinically clear. CARDIOVASCULAR SYSTEM: PMI is not palpable. Heart sounds are variable. No gallop or rub is appreciated. There is systolic ejection murmur is present in aortic area very well. ABDOMEN: Normal. EXTREMITIES: No edema, no cyanosis, no clubbing. Peripheral pulsations are equal bilaterally. IMPRESSION: 1. Atrial fibrillation with variable ventricular rate. 2. Hypertension, controlled. 3. Hypertensive heart disease. 4. History of cerebrovascular accident in the past. 5. History of deep venous thrombosis and peptic ulcer disease. 6. Advanced dementia. Other medical problem as per chart. PLAN: Continue with monitoring the labs and continue with adjusting the anticoagulant to keep PT/INR between 2 and 3. Control diabetes, control hypertension. Control heart rate. I do not think that she can be converted back to normal sinus rhythm and being the chronic atrial fibrillation and has multiple other risk factors with this. The other therapy is to continue with present management. The other therapies with cardiac management will be initiated as needed. Further workup and management is needed. Thank you very much Dr. Denny for your kind referral and I will follow along with you during her acute cardiac problem. JOB# [id number]
--- NOTE | 2018-01-11 00:33 | Consultation ---
DATE OF CONSULTATION: 01/09/2018 INFECTIOUS CONSULTATION PRIMARY CARE PHYSICIAN: Dr. Og. REASON FOR CONSULTATION: Parotid swelling. HISTORY OF PRESENT ILLNESS: The patient lives in the long term. He was found to have swelling of the right side of the face. The patient was brought to the Emergency Room and admitted to the hospital. Infectious consultation was called. The patient unable to provide meaningful history. CAT scan of the neck shows parotid swelling and the patient was started on antibiotics. PAST MEDICAL HISTORY: Hyperlipidemia, CVA, hypertension. FAMILY HISTORY: Negative. SOCIAL HISTORY: Nonsmoker. ALLERGIES: PENICILLIN. REVIEW OF SYSTEMS: A 14-point review of systems unable to obtain. No HIV, hepatitis, fall, trauma, seizures. PHYSICAL EXAMINATION: GENERAL: The patient is an elderly female, confused secondary to dementia. VITAL SIGNS: Temperature 98.8, pulse 69, respirations 17, blood pressure 110/54. HEENT: Mild pallor, no icterus or plaque. NECK: Supple. LUNGS: Breath sounds bilateral. CARDIOVASCULAR: S1. ABDOMEN: Soft, bowel sounds present. NODES: No cervical lymph nodes. Right side of the face has a large swelling without any cellulitis, mild tenderness present. LABORATORY DATA: White count is 30,000. Cultures are pending. DIAGNOSES: Right-sided parotid swelling, abscess versus malignancy, needs ENT evaluation. Empirically started vancomycin, Azactam and Flagyl. Rest of the care as ordered in CPOE. Regarding hypertension, the patient is already on amlodipine. PENICILLIN allergy, avoid constipation, docusate. Dementia, Aricept. Thank you, Dr. Og, for this consultation. JOB# [id number]
--- NOTE | 2018-01-11 00:47 | Progress Notes ---
DATE: 01/10/2018 CARDIOLOGY FOLLOWUP SUBJECTIVE: This patient is doing more or less the same. No new cardiac event is reported. Not in any acute distress. No nausea or vomiting. She gets restless occasionally. OBJECTIVE: VITAL SIGNS: Temperature is 97.5; heart rate 85, is ranging between 70s and 85; blood pressure 121/55; respiration is 14; O2 sat on present 2 liters by nasal cannula is 94%. HEENT: Same. NECK: Supple. The mass has been taken care. Carotids are easily palpable. Thyroid not palpable. LUNGS: Good air entry bilaterally. Some scattered rales are present. No rhonchi. CARDIOVASCULAR SYSTEM: No change. No new murmur, gallop, or rub is appreciated. Otherwise, physical examination has no change from cardiac point of view. LABORATORY DATA: Lab work was evaluated. The WBC count is coming down to 27.1 now from 35,000 with a left shift. ABG, CO2 is slightly high, pH is slightly high. Chem-7; hyponatremia and ____ blood glucose. LFT is normal. C-reactive protein is elevated too. TSH high, 31.5. ASSESSMENT: 1. Atrial fibrillation with a controlled ventricular rate. 2. Sepsis with neck abscess. 3. Hypertension, is controlled. 4. Hypertensive heart disease. Other medical problems are the same. PLAN: Get PT/INR checked up. Medications to evaluate and continue with aspirin and the furosemide and levothyroxine to be adjusted according to the TSH level. Continue with metoprolol, magnesium, and check for anticoagulant, which I do not see on the active list now, but we will restart according to the patient's previous history. Further workup and management will be initiated as needed. JOB# [id number]
--- NOTE | 2018-01-11 01:46 | Progress Notes ---
DATE: 01/10/2018 PULMONARY PROGRESS NOTE PROBLEM LIST: Right facial parotid surrounding area cellulitis, possibly abscess associated with septicemia underlying issues with anorexia. The patient is periodically fidgety, restless, is not eating good of a caloric nutrition. PHYSICAL EXAMINATION: GENERAL: Not in any acute distress. VITAL SIGNS: Temperature is 97.5, blood pressure 135/55. NECK: Veins not visualized. CHEST: Shows diminished air entry. No other adventitious breath sounds. HEART: Regular. ABDOMEN: Soft, nontender. The patient's chest x-ray shows borderline cardiomegaly, question some fluid overload. LABORATORY DATA: White count is dropping down to 27,000 and hemoglobin 13.2. ABG appears to be okay. Electrolytes are okay with sodium of 129. ASSESSMENT: The patient respiratory monroy stable, quite anorexic, appears to be improving leukocytosis with some bacteremia. PLANS AND SUGGESTIONS: We will continue current treatment. May have to consider feeding NG tube if the patient's attending agrees. JOB# [id number]
[2018-01-11] MEDS ORDERED: Magnesium Sulfate 1 gm/2 mL 2mL Vial IV ONE (02:43)
[2018-01-11] MEDS ORDERED: Mag Sulfate 2gm/50mL Premix 2 GM/50 ML BAG IV ONE (04:12)
[2018-01-11 05:43] LABS: ALBUMIN 2.5 gm/dL (3.7-5.3); ALKALINE PHOSPHATASE 99 U/L (34-104); ANION GAP 11.1 (7.0-16.0); BILIRUBIN,TOTAL 1.4 mg/dL (0.3-1.0); BUN - UREA NITROGEN 11 mg/dL (7-25); CALCIUM SERUM 7.9 mg/dL (8.6-10.3); CARBON DIOXIDE 20.7 mEq/L (21.0-31.0); CHLORIDE 103 mEq/L (98-107); CREATININE - SERUM 0.6 mg/dL (0.6-1.2); GLUCOSE 111 mg/dL (70-105); POTASSIUM SERUM 3.8 mEq/L (3.5-5.1); SGOT 31 U/L (13-39); SGPT/ALT 22 U/L (7-52); SODIUM SERUM 131 mEq/L (136-145); TOTAL PROTEIN,SERUM 5.1 gm/dL (6.0-8.3)
[2018-01-11 05:46] LABS: PROTHROMBIN TIME (TEST) 50.6 SECONDS (9.5-11.5)
[2018-01-11 06:01] LABS: HEMATOCRIT 35.1 % (41.0-60); HEMOGLOBIN 11.9 gm/dL (12-16); MEAN CORPUSCULAR HEMOGLOBIN 33.1 pg (27.0-31.0); MEAN CORPUSCULAR HGB CONC 33.8 pg (28.0-36.0); MEAN PLATELET VOLUME 7.8 fl; RED BLOOD COUNT 3.58 Mil/cmm (3.80-5.20); RED CELL DISTRIBUTION WIDTH 15.9 % (11.5-20.0)
[2018-01-11 06:03] LABS: PLATELET COUNT 111 Th/cmm (150-400)
[2018-01-11 06:09] LABS: % EOSINOPHILS 0.3 % (0.0-5.0); % LYMPHOCYTES 4.6 % (20.0-50.0); % MONOCYTES 2.4 % (2.0-10.0); % NEUTROPHILS 92.7 % (40.0-80.0); LYMPHOCYTE ABSOLUTE 0.8 Th/cmm (1.5-3.0); WHITE BLOOD COUNT 18.3 Th/cmm (4.8-10.8)
[2018-01-11] MEDS: metroNIDAZOLE 500mg/NS 100mL 500 MG/100 ML BAG IV SCH ×3 (06:09→21:14)
[2018-01-11 06:10] LABS: EOSINOPHILE ABSOLUTE 0.1 Th/cmm (0.1-0.4); MONOCYTE ABSOLUTE 0.4 Th/cmm (0.3-1.0)
[2018-01-11 07:11] LABS: INR 4.5 (0.5-1.4)
[2018-01-11] MEDS: Levothyroxine 0.05 Mg Tab PO SCH (07:29)
[2018-01-11] MEDS: D5-0.45NS 1,000 ML IV SCH (07:37)
[2018-01-11 08:30] LABS: ESR SEDIMENTATION SED RATE 50 mm/hr (0-30)
[2018-01-11] MEDS: Lactobacillus Rhamnosus GG 15 Billion CFU CAP.SPRINK PO SCH ×2 (10:08→10:25)
[2018-01-11] MEDS: Aspirin 81mg Chewable Tab PO SCH ×2 (10:09→10:24)
[2018-01-11] MEDS: Potassium Chloride 20 mEq ER Tab PO SCH ×2 (10:09→10:26)
[2018-01-11] MEDS: Calcium Carb/Vit D 500 mg/200 U Tab PO SCH ×2 (10:10→10:24)
[2018-01-11] MEDS: Multivitamin Tab PO SCH ×2 (10:10→10:26)
[2018-01-11] MEDS: Polyvinyl Alcohol Ophth Soln 15 mL Bottle EACH EYE SCH ×2 (10:11→10:26)
--- NOTE | 2018-01-11 10:46 | General Progress Note ---
Subjective - Review of Systems Service Date: 01/11/18 Events since last encounter: WBC downtrending swelling is less Objective - Results Result Diagrams: 01/11/18 05:10 01/11/18 05:10 Recent Labs: Laboratory Last Values WBC 18.3 Th/cmm (4.8-10.8) H D 01/11/18 05:10 RBC 3.58 Mil/cmm (3.80-5.20) L 01/11/18 05:10 Hgb 11.9 gm/dL (12-16) L 01/11/18 05:10 Hct 35.1 % (41.0-60) L 01/11/18 05:10 MCV 98.0 fl (81-100) 01/11/18 05:10 MCH 33.1 pg (27.0-31.0) H 01/11/18 05:10 MCHC Differential 33.8 pg (28.0-36.0) 01/11/18 05:10 RDW 15.9 % (11.5-20.0) 01/11/18 05:10 Plt Count 111 Th/cmm (150-400) L D 01/11/18 05:10 MPV 7.8 fl 01/11/18 05:10 Neutrophils % 92.7 % (40.0-80.0) H 01/11/18 05:10 Band Neutrophils % 6 % (0-10) 01/10/18 05:15 Lymphocytes % 4.6 % (20.0-50.0) L 01/11/18 05:10 Monocytes % 2.4 % (2.0-10.0) 01/11/18 05:10 Eosinophils % 0.3 % (0.0-5.0) 01/11/18 05:10 Basophils % 0.0 % (0.0-2.0) 01/11/18 05:10 Neutrophils (Manual) 87 % (40-80) H 01/10/18 05:15 Lymphocytes 5 % (20-50) L 01/10/18 05:15 Monocytes 2 % (2-10) 01/10/18 05:15 Eosinophils 0 % (0-5) 01/09/18 04:45 Basophils 0 % (0-3) 01/09/18 04:45 Platelet Estimate ADEQUATE (NORMAL) 01/10/18 05:15 Platelet Morphology NORMAL (NORMAL) 01/09/18 04:45 RBC Morph Micro Appear NORMAL (NORMAL) 01/09/18 04:45 ESR 50 mm/hr (0-30) H 01/11/18 07:50 PT 50.6 SECONDS (9.5-11.5) H 01/11/18 05:10 INR 4.50 (0.5-1.4) H* D 01/11/18 05:10 Specimen Source Arterial 01/10/18 09:00 Sample Site Right Radial 01/10/18 09:00 pH 7.46 (7.35-7.45) H 01/10/18 09:00 pCO2 37.0 mmHg (35.0-45.0) 01/10/18 09:00 pO2 84.0 mmHg (80.0-100.0) 01/10/18 09:00 HCO3 26.9 mEq/L (20.0-26.0) H 01/10/18 09:00 Base Excess 2.5 mEq/L (-3.0-3.0) 01/10/18 09:00 O2 Saturation 97.0 % (92.0-100.0) 01/10/18 09:00 Fortunato Test Positive 01/10/18 09:00 Vent Rate NA 01/10/18 09:00 Inspired O2 28 01/10/18 09:00 Tidal Volume NA 01/10/18 09:00 PEEP NA 01/10/18 09:00 Pressure (ins/psv/peep) NA 01/10/18 09:00 Critical Value SH 01/10/18 09:00 Sodium 131 mEq/L (136-145) L 01/11/18 05:10 Potassium 3.8 mEq/L (3.5-5.1) 01/11/18 05:10 Chloride 103 mEq/L (98-107) 01/11/18 05:10 Carbon Dioxide 20.7 mEq/L (21.0-31.0) L 01/11/18 05:10 Anion Gap 11.1 (7.0-16.0) 01/11/18 05:10 BUN 11 mg/dL (7-25) 01/11/18 05:10 Creatinine 0.6 mg/dL (0.6-1.2) 01/11/18 05:10 Est GFR ( Amer) TNP 01/11/18 05:10 Est GFR (Non-Af Amer) TNP 01/11/18 05:10 BUN/Creatinine Ratio 18.3 01/11/18 05:10 Glucose 111 mg/dL (70-105) H 01/11/18 05:10 POC Glucose 136 MG/DL (70 - 105) H 01/11/18 00:30 Whole Bld Lactic Acid 2.32 mmol/L (0.60-1.99) H* 01/08/18 22:40 Calcium 7.9 mg/dL (8.6-10.3) L 01/11/18 05:10 Magnesium 1.6 mg/dL (1.9-2.7) L 01/11/18 01:15 Total Bilirubin 1.4 mg/dL (0.3-1.0) H 01/11/18 05:10 AST 31 U/L (13-39) 01/11/18 05:10 ALT 22 U/L (7-52) 01/11/18 05:10 Alkaline Phosphatase 99 U/L (34-104) 01/11/18 05:10 C-Reactive Protein 16.9 mg/dL (0.0-0.9) H 01/11/18 05:10 Total Protein 5.1 gm/dL (6.0-8.3) L 01/11/18 05:10 Albumin 2.5 gm/dL (3.7-5.3) L 01/11/18 05:10 Globulin 2.6 gm/dL 01/11/18 05:10 Albumin/Globulin Ratio 1.0 (1.0-1.8) 01/11/18 05:10 TSH 31.50 uIU/ml (0.34-5.60) H 01/10/18 05:15 - Physical Exam Vitals and I&O: Vital Signs Temp 97.1 F 01/11/18 08:32 Pulse 63 01/11/18 10:25 Resp 18 01/11/18 08:32 BP 126/80 01/11/18 10:25 Pulse Ox 99 01/11/18 08:32 Intake & Output 01/10/18 01/11/18 01/11/18 18:59 06:59 18:59 Intake Total 1400 1602 Output Total 350 450 Balance 1050 1152 Weight (lbs) 75.432 kg 74.389 kg Intake: Intake, IV Amount 1400 1352 Aztreonam 1 gm In 50 100 Dextrose 5% 50 ml @ 100 mls/hr IV Q8HR [facility] Rx#: [id number] D5-0.45NS 1,000 ml @ 100 1000 1000 mls/hr IV .Q10H [facility] Rx#: [id number] Magnesium Sulfate 1 gm In 52 Sodium Chloride 0.9% 50 ml @ 52 mls/hr IV Q1 [facility] Rx#:[id number] Vancomycin HCl 1 gm In 250 Sodium Chloride 0.9% 250 ml @ 165 mls/hr IV Q24H [facility] Rx#:[id number] metroNIDAZOLE 500mg/NS 100 200 100mL 500 mg In 100 ml @ 100 mls/hr IV Q8HR [facility] Rx #:[id number] Oral 250 Output: Urine 350 450 Other: Weight Source Bedscale Bedscale Active Medications: Current Medications Acetaminophen (Tylenol) 650 mg PO Q6HR PRN PRN Reason: TEMP >101 OR MILD PAIN Stop: 03/09/18 18:00 Acetaminophen/Hydrocodone Bitart (Aneta 5mg/325mg) 1 tab PO Q6H PRN PRN Reason: Moderate Pain Stop: 03/09/18 18:03 Last Admin: 01/09/18 01:28 Dose: 1 tab Al Hydrox/Mg Hydrox/Simethicone (Maalox) 30 ml PO Q6H PRN PRN Reason: Dyspepsia Stop: 03/09/18 18:03 Amlodipine Besylate (Norvasc) 10 mg PO DAILY [facility] Stop: 03/10/18 08:59 Last Admin: 01/11/18 10:24 Dose: Not Given Artificial Tears (Artificial Tears Ophth Soln) 1 drop EACH EYE DAILY [facility] Stop: 03/10/18 08:59 Last Admin: 01/11/18 10:26 Dose: Not Given Aspirin (Aspirin Chewable) 81 mg PO DAILY [facility] Stop: 03/10/18 08:59 Last Admin: 01/11/18 10:24 Dose: Not Given Calcium/Vitamin D (Oscal W/Vitamin D) 1 tab PO DAILY [facility] Stop: 03/10/18 08:59 Last Admin: 01/11/18 10:24 Dose: Not Given Cyanocobalamin (Vitamin B12) 1,000 mcg PO DAILY [facility] Stop: 03/10/18 08:59 Last Admin: 01/11/18 10:24 Dose: Not Given Docusate Sodium (Colace) 100 mg PO DAILY [facility] Stop: 03/10/18 08:59 Last Admin: 01/11/18 10:25 Dose: Not Given Donepezil HCl (Aricept) 5 mg PO HS [facility] Stop: 03/09/18 20:59 Last Admin: 01/11/18 03:02 Dose: Not Given Escitalopram Oxalate (Lexapro) 10 mg PO DAILY [facility] PRN Reason: Protocol Stop: 03/10/18 08:59 Last Admin: 01/11/18 10:25 Dose: Not Given Folic Acid (Folate) 1 mg PO DAILY [facility] Stop: 03/10/18 08:59 Last Admin: 01/11/18 10:25 Dose: Not Given Furosemide (Lasix) 40 mg PO DAILY [facility] Stop: 03/10/18 08:59 Last Admin: 01/11/18 10:25 Dose: Not Given Guaifenesin/Dextromethorphan (Robitussin Dm) 10 ml PO Q6HR PRN PRN Reason: Cough Stop: 03/09/18 18:00 Dextrose/Sodium Chloride (D5-0.45ns) 1,000 mls @ 100 mls/hr IV .Q10H [facility] Stop: 03/09/18 20:10 Last Admin: 01/11/18 07:37 Dose: 100 mls/hr Vancomycin HCl 1 gm/ Sodium (Chloride) 250 mls @ 165 mls/hr IV Q24H [facility] Stop: 03/10/18 15:59 Last Infusion: 01/10/18 17:40 Dose: Infused Aztreonam 1 gm/ Dextrose 50 mls @ 100 mls/hr IV Q8HR [facility] Stop: 03/10/18 20:59 Last Infusion: 01/11/18 05:59 Dose: Infused Metronidazole (Flagyl) 500 mg in 100 mls @ 100 mls/hr IV Q8HR [facility] Stop: 03/10/18 20:59 Last Infusion: 01/11/18 06:54 Dose: Infused Lactobacillus Rhamnosus (Culturelle 15b) 1 each PO DAILY [facility] Stop: 03/11/18 08:59 Last Admin: 01/11/18 10:25 Dose: Not Given Levothyroxine Sodium (Synthroid) 0.05 mg PO QDAC [facility] Stop: 03/12/18 07:29 Last Admin: 01/11/18 07:29 Dose: 0.05 mg Lorazepam (Ativan) 1 mg PO BID PRN; Protocol PRN Reason: Anxiety Stop: 03/09/18 18:00 Losartan Potassium (Cozaar) 50 mg PO BID [facility] Stop: 03/10/18 08:59 Last Admin: 01/11/18 10:21 Dose: Not Given Magnesium Hydroxide (Milk Of Magnesia) 30 ml PO HS PRN PRN Reason: Constipation Stop: 03/09/18 18:03 Magnesium Oxide (Mag-Oxide) 400 mg PO DAILY [facility] Stop: 03/12/18 08:59 Last Admin: 01/11/18 10:25 Dose: Not Given Metoprolol Tartrate (Lopressor) 50 mg PO BID [facility] Stop: 03/10/18 08:59 Last Admin: 01/11/18 10:25 Dose: Not Given Miscellaneous (Vancomycin Iv Per Pharmacy) 1 ea PRN PRN PRN Reason: PROTOCOL Stop: 03/09/18 20:10 Miscellaneous (Probiotic Screen) 1 ea PRN PRN PRN Reason: PROTOCOL Stop: 03/11/18 08:29 Morphine Sulfate (Morphine) 2 mg IVP Q4H PRN PRN Reason: Severe Pain Stop: 03/09/18 18:03 Last Admin: 01/10/18 23:08 Dose: 2 mg Multivitamins/Vitamin C (Theragran) 1 tab PO DAILY [facility] Stop: 03/10/18 08:59 Last Admin: 01/11/18 10:26 Dose: Not Given Ondansetron HCl (Zofran) 4 mg IVP Q6H PRN PRN Reason: Nausea / Vomiting Stop: 03/09/18 18:03 Potassium Chloride (Klor-Con) 20 meq PO DAILY [facility] Stop: 03/10/18 08:59 Last Admin: 01/11/18 10:26 Dose: Not Given Simvastatin (Zocor) 40 mg PO HS [facility] PRN Reason: Protocol Stop: 03/09/18 20:59 Last Admin: 01/11/18 03:03 Dose: Not Given Terazosin HCl (Hytrin) 2 mg PO HS [facility] Stop: 03/10/18 20:59 Last Admin: 01/10/18 21:00 Dose: Not Given Assessment/Plan - Problem List Patient Problems: All Active Problems RIGHT SIDED NECK/FACIAL SWELLING (Acute)
[2018-01-11] MEDS: Morphine Sulfate 4 mg/mL 1mL Syr IVP PRN ×2 (15:10→22:37)
--- NOTE | 2018-01-12 00:04 | Progress Notes ---
DATE: 01/11/2018 SUBJECTIVE: The patient is awake. The patient is on oxygen nasal cannula. The patient has been transferred from ICU to telemetry unit. The patient is on IV antibiotics. The patient is on IV fluids. Per nursing staff, the patient is refusing oral medications. PHYSICAL EXAMINATION: VITAL SIGNS: Temperature is 97.1, pulse 63, blood pressure 126/80, respiratory rate 18, O2 saturation 99% on 2 liters nasal cannula. CARDIOVASCULAR: S1, S2. RESPIRATORY: Few rales. ABDOMEN: Soft. Positive bowel sounds. LABORATORY DATA: Hematology: WBC of 18.3, hemoglobin 11.9, hematocrit 35.1, platelet count of 111, with 92% segs, 4% lymphocytes. ESR is 50, PT 20.6, INR 4.5. Chemistry: Sodium 131, potassium 3.8, chloride 103, bicarbonate 20, anion gap 11, BUN 11, creatinine 0.6, GFR unavailable, glucose is 111, calcium 7.9, total bilirubin 1.4, AST 31, ALT 22, alkaline phosphatase 99. C-reactive 16.9, total bilirubin 5.1, albumin 2.5, globulin is 2.6. MICROBIOLOGY: Blood culture from 01/08/2018 shows no growth. MRSA screen from 01/09/2018 negative. Blood culture from 01/09/2018 reports no growth. RADIOLOGY: No new results. ASSESSMENT: 1. Sepsis. 2. Abdi's angina. 3. Right-sided parotitis. 4. Atrial fibrillation. 5. Hypertension. 6. Hyperlipidemia. 7. Cerebrovascular accident. 8. Deep venous thrombosis. 9. Peptic ulcer disease. 10. Dementia. 11. Hypothyroidism. 12. Respiratory failure (acute). 13. Deconditioning and debility. PLAN: Continue current management. Obtain labs in a.m. Coumadin, currently on hold. Repeat PT and INR in a.m. Awaiting final culture results. We will convert the patient's p.o. medication to IV medication. Further consults. JOB# [id number]
--- NOTE | 2018-01-12 00:46 | Progress Notes ---
DATE: 01/11/2018 PROBLEM LIST: 1. Partial upper airway obstruction secondary to abscess ____ pressure. 2. Parotitis/sepsis with parotid abscess and also underlying suspect obstructive sleep apnea syndrome. SYMPTOMS: Nil. Feeling okay, still quite tender on the right side of the face, clinically appears to be slightly smaller in size. PHYSICAL EXAMINATION: VITAL SIGNS: Temperature is 97.5, blood pressure 132/79. The patient is saturating 97 on 2 liters per minute. HEENT: Appears to be still with swelling of the right side, practically involving all right side of the face, parotid area and some tenderness, but swelling is seemingly down. NECK: No nodes in the neck could be palpated. CHEST: Shows diminished air entry. No other adventitious breath sounds. HEART: Regular. ABDOMEN: Soft, nontender. LABORATORY DATA: The patient's white count has gone down again to 18,000 and INR is 4.5. ASSESSMENT: The patient clinically appears to be much better. The patient's white count is slowly drifting to down and down side. There appears to be smaller size parotid. PLANS AND SUGGESTIONS: We will go ahead and continue current treatment. We will follow through another x-ray in the next day or two and go from there. JOB# [id number]
[2018-01-12] MEDS: metroNIDAZOLE 500mg/NS 100mL 500 MG/100 ML BAG IV SCH ×3 (04:04→22:15)
[2018-01-12 05:26] LABS: HEMATOCRIT 33.6 % (41.0-60); HEMOGLOBIN 11.4 gm/dL (12-16); MEAN CELL VOLUME 97.7 fl (81-100); MEAN CORPUSCULAR HGB CONC 33.8 pg (28.0-36.0); MEAN PLATELET VOLUME 7.3 fl; RED BLOOD COUNT 3.44 Mil/cmm (3.80-5.20); RED CELL DISTRIBUTION WIDTH 15.7 % (11.5-20.0)
[2018-01-12 05:28] LABS: WHITE BLOOD COUNT 17.1 Th/cmm (4.8-10.8)
[2018-01-12 05:29] LABS: MANUAL DIFF REQUIRED? YES
[2018-01-12 05:42] LABS: INR 1.45 (0.5-1.4); PROTHROMBIN TIME (TEST) 15.4 SECONDS (9.5-11.5)
[2018-01-12 06:00] LABS: ANION GAP 7.8 (7.0-16.0); BUN - UREA NITROGEN 9 mg/dL (7-25); CALCIUM SERUM 7.9 mg/dL (8.6-10.3); CARBON DIOXIDE 24.4 mEq/L (21.0-31.0); CHLORIDE 103 mEq/L (98-107); CREATININE - SERUM 0.5 mg/dL (0.6-1.2); GLUCOSE 133 mg/dL (70-105); POTASSIUM SERUM 3.2 mEq/L (3.5-5.1); SODIUM SERUM 132 mEq/L (136-145)
[2018-01-12] MEDS: Levothyroxine 0.05 Mg Tab PO SCH (06:38)
[2018-01-12 06:39] LABS: BAND NEUTROPHILE 11 % (0-10); LYMPHOCYTE 6 % (20-50); MONOCYTE 2 % (2-10); NEUTROPHILS 81 % (40-80); TOTAL CELLS COUNTED 100
[2018-01-12 06:41] LABS: PLATELET COUNT 235 Th/cmm (150-400)
[2018-01-12 07:30] LABS: ESR SEDIMENTATION SED RATE 45 mm/hr (0-30)
--- NOTE | 2018-01-12 08:53 | Diagnostic Imaging Report ---
Portable chest x-ray HISTORY: Shortness of breath Compared with prior exam of January 10, 2018, the heart is enlarged. Density noted in the right left lower hemithoracic region suggesting small bilateral pleural effusions. IMPRESSION: 1. Persistent cardiomegaly along with changes suggesting small bilateral pleural effusions. A degree of congestive heart failure cannot be excluded. Clinical correlation is needed.
[2018-01-12] MEDS: Aspirin 81mg Chewable Tab PO SCH (09:34)
[2018-01-12] MEDS: Calcium Carb/Vit D 500 mg/200 U Tab PO SCH (09:34)
[2018-01-12] MEDS: Lactobacillus Rhamnosus GG 15 Billion CFU CAP.SPRINK PO SCH (09:35)
[2018-01-12] MEDS: Potassium Chloride 20 mEq ER Tab PO SCH (09:36)
[2018-01-12] MEDS: Multivitamin Tab PO SCH (09:36)
[2018-01-12] MEDS: Polyvinyl Alcohol Ophth Soln 15 mL Bottle EACH EYE SCH (09:36)
[2018-01-12] MEDS: Morphine Sulfate 4 mg/mL 1mL Syr IVP PRN ×2 (10:02→19:01)
[2018-01-12] MEDS: D5-0.45NS 1,000 ML IV SCH (19:05)
--- NOTE | 2018-01-12 21:27 | Progress Notes ---
DATE: 01/12/2018 PROBLEM LIST: 1. Right-sided parotid swelling, parotitis and/or possibly hidden abscess. 2. Metabolic syndrome. 3. Bilateral pleural effusion. SYMPTOMS: Nil. The patient claims the pain is less. PHYSICAL EXAMINATION: GENERAL: No respiratory distress. VITAL SIGNS: T-max 98.1, saturation is 98 on 2 liters per minute. NECK: Right carotid has not much changed. No nodes in the neck could be palpated otherwise. CHEST: Shows clear with diminished air entry. HEART: Regular. LABORATORY DATA: White count is 17,000, slightly dropped than yesterday. Hemoglobin is reasonably stable. The patient chest x-ray shows borderline cardiomegaly, still very minimal effusion bilaterally. ASSESSMENT: The patient is clinically stable, improving parotid issue, partial issues with breathing, though it is not a major problem, bilateral effusion, probably secondary low nutritional status. PLANS AND SUGGESTION: We will go ahead and continue current treatment and I will repeat chest x-ray in the next few days' time. Continue other treatment. If she is anorexic, may consider putting a nasogastric tube temporary. JOB# [id number]
[2018-01-12] MEDS: Atorvastatin Calcium 10 MG TAB PO SCH (21:42)
[2018-01-13] MEDS: Morphine Sulfate 4 mg/mL 1mL Syr IVP PRN ×4 (00:23→17:51)
[2018-01-13] MEDS: metroNIDAZOLE 500mg/NS 100mL 500 MG/100 ML BAG IV SCH ×3 (06:19→20:44)
--- NOTE | 2018-01-13 07:07 | Progress Notes ---
DATE: 01/12/2018 CARDIOLOGY FOLLOWUP SUBJECTIVE: The patient is doing the same. No new cardiac event is reported. Noncommunicable but not in any distress. PHYSICAL EXAMINATION: VITAL SIGNS: Within normal ranges. Temperature 98.1, heart rate 83, blood pressure 117/76, respiration 18, O2 sat on 2 liters by nasal canula, O2 therapy is 98%. HEENT: Same. NECK: Supple. JVP is flat. LUNGS: Good breath sounds bilaterally. No rhonchi. Bibasilar rales present. CARDIOVASCULAR SYSTEM: PMI is not palpable. Heart sounds are same, variable. No new gallop, murmur or rub is appreciated. Otherwise, physical examination, no significant change from cardiac point of view. LABORATORY DATA: Showing the PT/INR has gone down to 1.4 today from 1.5 yesterday. The leukocytosis is getting slightly better. Chem-7, potassium is slightly low to 3.2. BUN and creatinine are normal. IMPRESSION: 1. Atrial fibrillation with a well-controlled ventricular rate. Sepsis is getting better. Acute respiratory failure, improving. 2. Hypertension, controlled. 3. Hypertensive heart disease. Coagulopathy secondary to warfarin toxicity and elevated secondary to heparin is resolved now. Other medical problems are per chart. PLAN: Restart warfarin, restart with 2 mg and PT, INR and followup and keep between 2 and 2.5 range. From cardiac point of view, continue present therapy same. Further management as needed. JOB# [id number]
[2018-01-13] MEDS: Levothyroxine 0.05 Mg Tab PO SCH (07:35)
[2018-01-13 08:05] LABS: INR 1.71 (0.5-1.4); PROTHROMBIN TIME (TEST) 18.3 SECONDS (9.5-11.5)
[2018-01-13] MEDS: Aspirin 81mg Chewable Tab PO SCH (08:50)
[2018-01-13] MEDS: Calcium Carb/Vit D 500 mg/200 U Tab PO SCH (08:51)
[2018-01-13] MEDS: Multivitamin Tab PO SCH (08:52)
[2018-01-13] MEDS: Lactobacillus Rhamnosus GG 15 Billion CFU CAP.SPRINK PO SCH (08:52)
[2018-01-13] MEDS: Potassium Chloride 20 mEq ER Tab PO SCH (08:53)
[2018-01-13] MEDS: Polyvinyl Alcohol Ophth Soln 15 mL Bottle EACH EYE SCH (08:53)
[2018-01-13] MEDS: Atorvastatin Calcium 10 MG TAB PO SCH ×2 (20:45→23:27)
[2018-01-13] MEDS: D5-0.45NS 1,000 ML IV SCH (20:47)
--- NOTE | 2018-01-13 21:52 | Progress Notes ---
DATE: 01/13/2018 PROBLEM LIST: 1. Cellulitis, sepsis, right peripheral vision. 2. Obstructive sleep apnea syndrome. 3. Bilateral effusion. SYMPTOMS: Nil. The patient periodically get restless, agitated. Nutrition has been taken when the family is fed, otherwise unremarkable. PHYSICAL EXAMINATION: VITAL SIGNS: Temperature is 98.1, blood pressure 119/56, respirations 18, saturation 98 on 2 liters per minute. NECK: On exam, the parotid gland on the right side appears to be less swollen, though he is quite tender. LUNGS: Appears to be diminished air entry. No other adventitious breath sounds. HEART: Regular. ABDOMEN: Soft, nontender. LABORATORY DATA: Today's CBC is pending. ASSESSMENT: The patient clinically appears to be improving very slowly. PLANS AND SUGGESTIONS: We will go ahead and continue current treatment for follow through lab test tomorrow. JOB# [id number]
[2018-01-14] MEDS: metroNIDAZOLE 500mg/NS 100mL 500 MG/100 ML BAG IV SCH ×2 (04:53→13:19)
[2018-01-14 07:23] LABS: HEMATOCRIT 34.5 % (41.0-60); HEMOGLOBIN 11.6 gm/dL (12-16); MEAN CELL VOLUME 97.2 fl (81-100); MEAN CORPUSCULAR HEMOGLOBIN 32.7 pg (27.0-31.0); MEAN CORPUSCULAR HGB CONC 33.6 pg (28.0-36.0); MEAN PLATELET VOLUME 6.8 fl; PLATELET COUNT 242 Th/cmm (150-400); RED BLOOD COUNT 3.54 Mil/cmm (3.80-5.20); RED CELL DISTRIBUTION WIDTH 15.8 % (11.5-20.0)
[2018-01-14 07:38] LABS: WHITE BLOOD COUNT 14.4 Th/cmm (4.8-10.8)
[2018-01-14 07:47] LABS: ALB/GLOB RATIO 0.9 (1.0-1.8); ALBUMIN 2.4 gm/dL (3.7-5.3); ALKALINE PHOSPHATASE 93 U/L (34-104); ANION GAP 7.4 (7.0-16.0); BILIRUBIN,TOTAL 0.8 mg/dL (0.3-1.0); BUN - UREA NITROGEN 8 mg/dL (7-25); CALCIUM SERUM 7.9 mg/dL (8.6-10.3); CARBON DIOXIDE 26.9 mEq/L (21.0-31.0); CHLORIDE 105 mEq/L (98-107); CREATININE - SERUM 0.5 mg/dL (0.6-1.2); GLUCOSE 124 mg/dL (70-105); INR 1.58 (0.5-1.4); POTASSIUM SERUM 3.3 mEq/L (3.5-5.1); PROTHROMBIN TIME (TEST) 16.8 SECONDS (9.5-11.5); SGOT 15 U/L (13-39); SGPT/ALT 11 U/L (7-52); SODIUM SERUM 136 mEq/L (136-145); TOTAL PROTEIN,SERUM 5.2 gm/dL (6.0-8.3)
[2018-01-14] MEDS: Levothyroxine 0.05 Mg Tab PO SCH (08:00)
[2018-01-14] MEDS: Aspirin 81mg Chewable Tab PO SCH (09:28)
[2018-01-14] MEDS: Calcium Carb/Vit D 500 mg/200 U Tab PO SCH (09:28)
[2018-01-14] MEDS: Lactobacillus Rhamnosus GG 15 Billion CFU CAP.SPRINK PO SCH (09:29)
[2018-01-14] MEDS: Polyvinyl Alcohol Ophth Soln 15 mL Bottle EACH EYE SCH (09:29)
[2018-01-14] MEDS: Multivitamin Tab PO SCH (09:29)
[2018-01-14] MEDS: Potassium Chloride 20 mEq ER Tab PO SCH (09:30)
[2018-01-14 09:57] LABS: BAND NEUTROPHILE 2 % (0-10); EOSINOPHIL 1 % (0-5); LYMPHOCYTE 5 % (20-50); MANUAL DIFF REQUIRED? YES; MONOCYTE 5 % (2-10); NEUTROPHILS 87 % (40-80); PLATELET ESTIMATE ADEQUATE (NORMAL); TOTAL CELLS COUNTED 100
[2018-01-14] MEDS: D5-0.45NS 1,000 ML IV SCH (13:10)
--- NOTE | 2018-01-14 19:39 | Progress Notes ---
DATE: 01/13/2018 CARDIOLOGY FOLLOWUP SUBJECTIVE: The patient is more or less the same. No significant changes are seen from cardiac point of view. Not in any distress. The patient is noncommunicative, could not obtain much history out of the patient. OBJECTIVE: VITAL SIGNS: Temperature is normal. Heart rate is between 70s and 80s. Blood pressure is 126/89, respirations 18-20 range and O2 sat is 95% to 98% on 2 liters by nasal cannula. HEENT: Normal. NECK: Supple. LUNGS: Bilateral slightly decreased breath sounds and has bibasilar scattered rales. No rhonchi. CARDIOVASCULAR SYSTEM: PMI is not palpable. Heart sounds are the same. No new murmur, rub, or gallop is appreciated. EXTREMITIES: No edema, no cyanosis, no clubbing. Peripheral pulses are equal bilaterally. LABORATORY WORK: Evaluated. PT/INR is better to 1.7 today and will restart taking warfarin. Electrolytes abnormal as sodium is still slightly low to 132. Leukocytosis ____ done today for CBC. IMPRESSION: 1. Atrial fibrillation with controlled ventricular rate. 2. Respiratory failure. 3. Subtherapeutic PT/INR. 4. Hypertension is controlled. 5. Hypertensive heart disease. 6. Other medical problems as per chart. PLAN: From cardiac point of view, continue same. Keep PT/INR between 2 and 2.5. The pharmacy adjusting the dose for that. Continue with fluid balance. Continue with present cardiac therapy. Further management will be initiated as needed. JOB# [id number]
[2018-01-14] MEDS: Atorvastatin Calcium 10 MG TAB PO SCH (21:39)
[2018-01-14] MEDS: Morphine Sulfate 4 mg/mL 1mL Syr IVP PRN (22:29)
--- NOTE | 2018-01-15 01:38 | Progress Notes ---
DATE: 01/14/2018 PULMONARY PROGRESS NOTE PROBLEM LIST: 1. Right parotid disease, not sure if it is abscess versus tumor with abscess with possibly obstructive ____. 2. Septicemia. 3. Obstructive sleep apnea syndrome suspect. 4. Mild degree of bilateral effusion. SYMPTOMS: The patient is awake, does not communicate much, no respiratory distress, etc. PHYSICAL EXAMINATION: VITAL SIGNS: T-max 97.6, blood pressure 134/63, saturation is 98 on 2 liters per minute. NECK: Veins are not visualized. CHEST: Shows diminished air entry. HEART: Regular. ABDOMEN: Soft, nontender. LABORATORY DATA: White count is 14.4, hemoglobin 11.6, potassium is 3.3. ASSESSMENT: The patient clinically is very slowly improving, respiratory-monroy stable. PLANS AND SUGGESTIONS: We will continue her current treatment and we will see her as needed as currently, she is very stable. JOB# [id number]
--- NOTE | 2018-01-15 03:19 | Progress Notes ---
DATE: 01/13/2018 SUBJECTIVE: The patient is awake. The patient is on oxygen. The patient is on IV antibiotics. The patient is being transferred to Telemetry. ASSESSMENT: 1. Sepsis. 2. Abdi's angina. 3. Right-sided parotitis. 4. Atrial fibrillation. 5. Hypertension. 6. Hyperlipidemia. 7. Cerebrovascular accident. 8. Deep venous thrombosis. 9. Peptic ulcer disease. 10. Dementia. 11. Hypothyroidism. 12. Respiratory failure, acute. 13. Debility. Plan: Continue current treatment. Obtain labs in am. Further per consultants. JOB# [id number] CHRIST[facility]
--- NOTE | 2018-01-15 03:28 | Progress Notes ---
DATE: 01/14/2018 SUBJECTIVE: The patient is awake. The patient is on oxygen nasal cannula. The patient is on IV antibiotics. The patient is being transferred to contract facility. OBJECTIVE: VITAL SIGNS: Same. CARDIAC: S1 and S2. RESPIRATORY: Few rales. GASTROINTESTINAL: Soft. Positive bowel sounds. LABORATORY DATA: Same. ASSESSMENT AND PLAN: 1. Sepsis. 2. Abdi's angina. 3. Parotitis. 4. Hypertension. 5. Hyperlipidemia. 6. Cerebrovascular accident. 7. Deep venous thrombosis. 8. Peptic ulcer disease. 9. Dementia. 10. Hypothyroidism. 11. Respiratory failure, acute. 12. Debility. PLAN: Continue current management and treatment. Obtain labs in a.m. Awaiting transfer to contract facility. JOB# [id number]
--- NOTE | 2018-01-15 03:55 | Progress Notes ---
DATE: 01/12/2018 SUBJECTIVE: The patient is awake. The patient is on oxygen. PHYSICAL EXAMINATION: VITAL SIGNS: Same. CARDIOVASCULAR: S1 and S2. RESPIRATORY: Clear. GASTROINTESTINAL: Soft. Positive bowel sounds. LABORATORY DATA: Same. ASSESSMENT: 1. Abdi's angina. 2. Sepsis. 3. Right-sided parotitis. 4. Atrial fibrillation. 5. Hypertension. 6. Hyperlipidemia. 7. Cerebrovascular disease. 8. Deep venous thrombosis. 9. Peptic ulcer disease. 10. Dementia. 11. Hypothyroidism. 12. Respiratory failure, acute. 13. Deconditioning and debility. PLAN: Continue current management. Obtain labs in a.m. JOB# [id number]
[2018-01-15 07:34] LABS: INR 1.68 (0.5-1.4)
[2018-01-15 07:36] LABS: % BASOPHILS 0.3 % (0.0-2.0); % EOSINOPHILS 1.9 % (0.0-5.0); % LYMPHOCYTES 4.9 % (20.0-50.0); % NEUTROPHILS 88.9 % (40.0-80.0); EOSINOPHILE ABSOLUTE 0.3 Th/cmm (0.1-0.4); HEMATOCRIT 34.5 % (41.0-60); HEMOGLOBIN 11.9 gm/dL (12-16); LYMPHOCYTE ABSOLUTE 0.7 Th/cmm (1.5-3.0); MEAN CELL VOLUME 97.1 fl (81-100); MEAN CORPUSCULAR HEMOGLOBIN 33.6 pg (27.0-31.0); MEAN CORPUSCULAR HGB CONC 34.6 pg (28.0-36.0); MEAN PLATELET VOLUME 6.9 fl; MONOCYTE ABSOLUTE 0.6 Th/cmm (0.3-1.0); NEUTROPHILE ABSOLUTE 13.2 Th/cmm (1.8-8.0); PLATELET COUNT 258 Th/cmm (150-400); RED BLOOD COUNT 3.55 Mil/cmm (3.80-5.20); RED CELL DISTRIBUTION WIDTH 15.7 % (11.5-20.0)
[2018-01-15 07:40] LABS: WHITE BLOOD COUNT 14.8 Th/cmm (4.8-10.8)
[2018-01-15 07:50] LABS: BUN - UREA NITROGEN 6 mg/dL (7-25); CALCIUM SERUM 7.7 mg/dL (8.6-10.3); CARBON DIOXIDE 26.8 mEq/L (21.0-31.0); CHLORIDE 104 mEq/L (98-107); CREATININE - SERUM 0.4 mg/dL (0.6-1.2); GLUCOSE 130 mg/dL (70-105); SODIUM SERUM 136 mEq/L (136-145)
[2018-01-15 08:02] LABS: POTASSIUM SERUM 2.8 mEq/L (3.5-5.1)
[2018-01-15 08:30] LABS: ESR SEDIMENTATION SED RATE 49 mm/hr (0-30)
[2018-01-15] MEDS: Aspirin 81mg Chewable Tab PO SCH (09:29)
[2018-01-15] MEDS: Calcium Carb/Vit D 500 mg/200 U Tab PO SCH (09:29)
[2018-01-15] MEDS: Potassium Chloride 20 mEq ER Tab PO SCH (09:29)
[2018-01-15] MEDS: Levothyroxine 0.05 Mg Tab PO SCH (09:30)
[2018-01-15] MEDS: Lactobacillus Rhamnosus GG 15 Billion CFU CAP.SPRINK PO SCH (09:36)
[2018-01-15] MEDS: Multivitamin Tab PO SCH (09:41)
[2018-01-15] MEDS: Polyvinyl Alcohol Ophth Soln 15 mL Bottle EACH EYE SCH (11:35)
[2018-01-15] MEDS: D5-0.45NS 1,000 ML IV SCH (13:49)
[2018-01-15] MEDS: KCL 20mEq/100mL Premix 20 MEQ/100 ML PIGGYBACK IV SCH ×2 (15:40→17:47)
[2018-01-15] MEDS: Atorvastatin Calcium 10 MG TAB PO SCH (20:47)
--- NOTE | 2018-01-15 22:26 | Progress Notes ---
DATE: 01/15/2018 SUBJECTIVE: The patient is asleep. The patient is on oxygen nasal cannula. The patient is on IV antibiotics. OBJECTIVE: VITAL SIGNS: Temperature is 97.1, pulse of 96, blood pressure 136/70, respiration 18, O2 98% on oxygen nasal cannula. CARDIOVASCULAR: S1 and S2. RESPIRATORY: Few rales. GASTROINTESTINAL: Soft. Positive bowel sounds. LABORATORY DATA: Hematology: WBC of 14.8, hemoglobin 11.9, hematocrit 34.5, platelet count of 258, 88% neutrophils, 4% monocytes. ESR is 49. PT 18, INR 1.68. Sodium is 136, potassium 2.8, chloride 104, bicarbonate 26, anion gap 8, BUN 6, creatinine 0.4, GFR unavailable, glucose 130, calcium 7.7. C-reactive 26.8. MICROBIOLOGY: Blood culture from 01/08/2018 shows Staph aureus. MRSA screening from 01/09/2018 is negative. Blood culture from 01/09/2018 shows no growth. ASSESSMENT: 1. Sepsis. 2. Bacteremia secondary to Staphylococcus aureus (probable contamination). 3. Leukocytosis. 4. Anemia. 5. Hypokalemia. 6. Hyperglycemia. 7. Hypocalcemia. 8. Abdi's angina. 9. Parotitis. 10. Hypertension. 11. Hyperlipidemia. 12. Cerebrovascular accident. 13. Deep venous thrombosis. 14. Peptic ulcer disease. 15. Dementia. 16. Hypothyroidism. 17. Respiratory failure (acute). 18. Debility. 19. Weakness. PLAN: Continue current management. The patient is planned for transfer to [facility] for evaluation and treatment by ENT. Further consults. JOB# [id number] [facility]
== END 2018-01-15 23:25 | disposition short-term general hospital (02) | DRG 720 ==
LOC: ER 14:24 → ICU 15:52 → TELE 01-11 07:00
PROVIDERS: ADMIT Preventive Medicine Preventive Medicine/Occupational Environmental Medicine; ATTEND Preventive Medicine Preventive Medicine/Occupational Environmental Medicine
DX: A41.01 Sepsis due to Methicillin susceptible Staphylococcus aureus (principal); J96.00 Acute respiratory failure, unspecified whether with hypoxia or hypercapnia; J90 Pleural effusion, not elsewhere classified; E44.0 Moderate protein-calorie malnutrition; D68.9 Coagulation defect, unspecified; I11.0 Hypertensive heart disease with heart failure; I48.2 Chronic atrial fibrillation; E83.51 Hypocalcemia; D64.9 Anemia, unspecified; F03.90 Unspecified dementia, unspecified severity, without behavioral disturbance, psychotic disturbance, mood disturbance, and anxiety; E78.5 Hyperlipidemia, unspecified; F32.9 Major depressive disorder, single episode, unspecified; R73.9 Hyperglycemia, unspecified; E87.6 Hypokalemia; K11.20 Sialoadenitis, unspecified; G47.33 Obstructive sleep apnea (adult) (pediatric); E03.9 Hypothyroidism, unspecified; L03.211 Cellulitis of face; L02.11 Cutaneous abscess of neck; T45.515A Adverse effect of anticoagulants, initial encounter; K12.2 Cellulitis and abscess of mouth; Z86.73 Personal history of transient ischemic attack (TIA), and cerebral infarction without residual deficits; Z86.718 Personal history of other venous thrombosis and embolism; K27.9 Peptic ulcer, site unspecified, unspecified as acute or chronic, without hemorrhage or perforation; Z88.0 Allergy status to penicillin; Z79.01 Long term (current) use of anticoagulants; Z82.49 Family history of ischemic heart disease and other diseases of the circulatory system; Y92.89 Other specified places as the place of occurrence of the external cause
CPT/HCPCS: 36415-UA; 36600-90; 70490-TC; 71045-TC; 80048-TC; 80053-TC; 80202-TC; 82565-TC; 82803-TC; 82948-90; 83605; 83735-TC; 84443-TC; 84520-TC; 85007-TC; 85025-TC; 85027-TC; 85610-TC; 85652-TC; 86141-TC; 90799; 93005; 94760; 96374; J1644; J1815; J2930; J3370; J3475; J3480; J3490; Z7610